=== PATIENT | female | born 1980 | race Caucasian/White ===

== ENCOUNTER 2017-03-01 12:02 | Emergency (ER) | payer OTHER ==
[2017-03-01 12:17] VITALS: BP 104/57
[2017-03-01] MEDS ORDERED: Ketorolac 60 MG/2 ML SDV IM ONE (12:28)
--- NOTE | 2017-03-01 12:53 | EDM.PDOC ---
ED HPI Trauma - General Chief Complaint: Lower Extremity Injury/Pain Stated Complaint: LT KNEE INJURY Time Seen by Provider: 03/01/17 12:08 Source: Reports: Patient History Limitations: Reports: No limitations - History of Present Illness INITIAL COMMENTS - FREE TEXT/NARRATIVE: 36 year old female presents for evaluation and treatment of injury to the left knee. Patient reports injury occurred about one hour prior to arrival in the ER. 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 She was at work. She was walking on a wet bathroom floor. She states that she slipped and fell and landed directly on her knee. She is complaining of burning sensation to the anterior knee and along the medial left knee. She has not been able to bear weight on the knee since the fall. She did not hear any popping, cracking or snapping sounds. She denies any numbness or tingling into the leg distally. No bruising or swelling as of yet. No treatments prior to arrival in the ER. patient recently relocated to [place] from [place]. She does not have a primary care provider. Patient also reports left ankle pain and swelling. She states that she broke the left foot twice. She's been utilizing a walking boot when the foot is causing her discomfort. Occurred When: just prior to arrival Occurred Where: work Method of Injury: fall Pain/Injury Location: Reports: lower extremity, left Consciousness: Reports: no loss of consciousness, remembers incident Allergies/ADRs: Allergies No Known Allergies Allergy (Verified 03/01/17 12:11) Home Medications: Ambulatory Orders . [No Known Home Meds] 03/01/17 [Confirmed 03/01/17] Past Medical History Respiratory History: Reports: Asthma Neurological History: Reports: Other (see below) Other Neuro History: brain surgery - Past Surgical History GI Surgical History: Reports: Cholecystectomy Female Surgical History: Reports: section Musculoskeletal Surgical History: Reports: Carpal tunnel Social & Family History - Tobacco Use Smoking Status *Q: Current Every Day Smoker Years of Tobacco use: 22 Packs/Tins Daily: 1 - Caffeine Use Caffeine Use: Reports: Coffee, Soda, Tea - Recreational Drug Use Recreational Drug Use: No Review of Systems - Review of Systems Review Of Systems: See Below Musculoskeletal: Reports: foot pain (left, chronic), joint pain (left knee). Denies: joint swelling Skin: Denies: bruising, erythema, wound Neurological: Reports: Difficulty Walking (due to left knee pain). Denies: Numbness, Syncope, Tingling Trauma Exam - Physical Exam Exam: See Below Exam Limited By: No limitations General Appearance: Reports: alert, WD/WN, no apparent distress Head: Reports: atraumatic, normocephalic Respiratory Exam: Reports: no respiratory distress Cardiovascular: Reports: normal peripheral pulses (2+ dorsalis pedis and posterior tibialis pulses bilaterally) Extremities: Reports: no evidence of injury, bony-point tenderness (left patella ), pain with movement (able to flex the knee to 90 degrees), tenderness ( superior and lateral to the left knee), unable to bear weight, other (mild pain with anterior drawer, posterior drawer, valgua and varus stress testing; no laxity appreciated.) Neurologic: Reports: alert, normal mood/affect Skin: Reports: Normal color, Warm/dry. Denies: Ecchymosis Course - Vital Signs Last Recorded V/S: Last Vital Signs Temp 36.7 C 03/01/17 12:15 Pulse 85 03/01/17 12:15 Resp 20 03/01/17 12:15 BP 104/57 L 03/01/17 12:15 Pulse Ox 98 03/01/17 12:15 - Orders/Labs/Meds Orders: Active Orders 24 hr Category Date Time Status Knee Min 4V Lt [CR] Stat Exams 03/01/17 12:28 Ordered Meds: Medications Discontinued Medications Generic Name Dose Route Start Last Admin Trade Name Freq PRN Reason Stop Dose Admin Ketorolac Tromethamine 60 mg 03/01/17 12:28 03/01/17 12:44 Toradol IM 03/01/17 12:29 60 mg ONETIME ONE Administration - Re-Assessments/Exams Free Text/Narrative Re-Assessment/Exam: 03/01/17 13:07 I reviewed the xray results with the patient. No fractures. Will provide crutches and an HI bandage. Note written for work. Discharge instructions as documented. Departure - Departure Time of Disposition: 13:08 Disposition: Home, Self-Care 01 Condition: fair Clinical Impression: Contusion of knee Instructions: Muscle Strain, [id number] Referrals: PCP,None [Primary Care Provider] - Forms: ED Department Discharge, Return to Work/School Form Additional Instructions: [id number] Tylenol or Motrin as needed for pain relief. Use the crutches and the Hi bandage as needed for swelling and pain relief. Ice the knee 3-4 times a day for 10-15 minutes. Expect the knee to be sore the next week. The first 3 days will be the worst. I have written you a note for work. If you continue to have soreness of the knee towards the end of this week I recommend he see family practice. Call [phone] to schedule the provider at [facility]. Recommend Dr. Moralez or Ryan Vargas. Please return to the ER should your symptoms change or worsen. - My Orders Last 24 Hours: My Active Orders 03/01/17 12:28 Knee Min 4V Lt [CR] Stat - Assessment/Plan Last 24 Hours: My Active Orders 03/01/17 12:28 Knee Min 4V Lt [CR] Stat
--- NOTE | 2017-03-03 10:34 | CR ---
Left knee: Four views of the left knee were obtained. Comparison: No previous study. Medial and lateral joint spaces are maintained in height. No joint effusion is seen. No fracture or other bony abnormality is seen. Impression: 1. No abnormality is identified on the left knee exam. Diagnostic code #1
== END 2017-03-01 13:40 | disposition home or self-care (01) ==
LOC: JD.ED 12:02
DX: S80.02XA Contusion of left knee, initial encounter (principal); J45.909 Unspecified asthma, uncomplicated; F17.210 Nicotine dependence, cigarettes, uncomplicated; Z90.49 Acquired absence of other specified parts of digestive tract; Z98.890 Other specified postprocedural states; W01.0XXA Fall on same level from slipping, tripping and stumbling without subsequent striking against object, initial encounter; Y92.002 Bathroom of unspecified non-institutional (private) residence as the place of occurrence of the external cause; Y99.0 Civilian activity done for income or pay
CPT/HCPCS: 73564; 96372; 99284; J1885; 99283

== ENCOUNTER 2017-04-27 15:12 | Emergency (ER) | payer SELFPAY ==
--- NOTE | 2017-04-27 15:29 | EDM.PDOC ---
ED HPI GENERAL MEDICAL PROBLEM - General Chief Complaint: Skin Complaint Stated Complaint: 3 DAYS PAINFULL RASH MID SECTION Time Seen by Provider: 04/27/17 15:18 - History of Present Illness INITIAL COMMENTS - FREE TEXT/NARRATIVE: 36-year-old female presents emergency room with an itchy rash. This started 3 or 4 days ago it has been somewhat variable initially she had some on her back but now it is almost entirely on her abdomen. This is bothersome for her as she has significant itching with this. She denies any other symptoms no fevers or chills no abdominal pain no breathing difficulties no shortness of breath. She has not had any burning or frequency with urination and denies as she had a tubal many years ago. The patient comes started the day after she returned from a trip to [place]. Past medical history is otherwise unremarkable. She has asthma uses albuterol as needed has not needed to use this for quite a long time. She has no breathing difficulties with this rash - Related Data Allergies Allergy/AdvReac Type Severity Reaction Status Date / Time No Known Allergies Allergy Verified 03/01/17 12:11 Home Meds: Home Meds Albuterol Sulfate [Proventil Hfa] 1 - 2 puff INH ASDIRECTED 04/27/17 [History] Prednisone [IJD: predniSONE] 60 mg PO WITHBREAKFAST #12 tab 04/27/17 [Rx] Past Medical History Respiratory History: Reports: Asthma Neurological History: Reports: Other (See Below) Other Neuro History: brain surgery - Past Surgical History Female Surgical History: Reports: Section Musculoskeletal Surgical History: Reports: Carpal Tunnel Social & Family History - Tobacco Use Smoking Status *Q: Current Every Day Smoker Years of Tobacco use: 22 Packs/Tins Daily: 1 - Caffeine Use Caffeine Use: Reports: Coffee, Soda, Tea - Recreational Drug Use Recreational Drug Use: No ED ROS GENERAL - Review of Systems Review Of Systems: See Below Constitutional: Reports: No Symptoms HEENT: Reports: No Symptoms Respiratory: Reports: No Symptoms Cardiovascular: Reports: No Symptoms Endocrine: Reports: No Symptoms GI/Abdominal: Reports: No Symptoms : Reports: No Symptoms Musculoskeletal: Reports: No Symptoms Skin: Reports: Urticaria Neurological: Reports: No Symptoms Psychiatric: Reports: No Symptoms ED EXAM, SKIN/RASH Exam: See Below Exam Limited By: No Limitations General Appearance: Alert, No Apparent Distress Eye Exam: Bilateral Eye: Normal Inspection Ears: Normal External Exam, Normal Canal, Hearing Grossly Normal, Normal TMs Nose: Normal Inspection, Normal Mucosa, No Blood Throat/Mouth: Normal Inspection, Normal Lips, Normal Teeth, Normal Gums, Normal Oropharynx, Normal Voice, No Airway Compromise Head: Atraumatic, Normocephalic Neck: Normal Inspection, Supple, Non-Tender, Full Range of Motion Respiratory/Chest: No Respiratory Distress, Lungs Clear, Normal Breath Sounds Cardiovascular: Regular Rate, Rhythm, No Edema, No Murmur Back Exam: Normal Inspection. No: CVA Tenderness (L), CVA Tenderness (R) Neurological: Alert, Oriented, Normal Cognition, No Motor/Sensory Deficits Skin: Other (She has polymorphic macular rash mostly over her abdomen to a much lesser degree she has a few areas on her low back. These areas change frequently the size of lesions is variable sometimes confluent sometimes individual but this does change. No burrows identified no involvement of the hands or feet.) Course - Vital Signs Last Recorded V/S: Last Vital Signs Temp 36.7 C 04/27/17 15:30 Pulse 81 04/27/17 15:30 Resp 20 04/27/17 15:30 BP 105/66 04/27/17 15:30 Pulse Ox 98 04/27/17 15:30 - Orders/Labs/Meds Meds: Medications Discontinued Medications Generic Name Dose Route Start Last Admin Trade Name Bertin PRN Reason Stop Dose Admin Diphenhydramine HCl 50 mg 04/27/17 15:48 04/27/17 15:58 Benadryl PO 04/27/17 15:49 50 mg ONETIME ONE Administration Famotidine 40 mg 04/27/17 15:48 04/27/17 15:57 Pepcid PO 04/27/17 15:49 40 mg ONETIME ONE Administration Prednisone 80 mg 04/27/17 15:48 04/27/17 15:58 Prednisone PO 04/27/17 15:49 80 mg ONETIME ONE Administration - Re-Assessments/Exams Free Text/Narrative Re-Assessment/Exam: 04/27/17 16:54 Albeit the patient just returned from a trip to [place] she denies any obvious exposures. Her significant other has not developed a rash or any other symptoms. This rash does have a lot of characteristics of hives and with that the variability this is probably what it is. Departure - Departure Time of Disposition: 16:44 Disposition: Home, Self-Care 01 Clinical Impression: Hives - Discharge Information Prescriptions: Prednisone [IJD: predniSONE] 60 mg PO WITHBREAKFAST #12 tab Referrals: PCP,None [Primary Care Provider] - Forms: ED Department Discharge Additional Instructions: Return to the emergency room with any questions or problems worsening symptoms. Follow-up in the Hospital clinic on Friday for recheck [phone] You have been started on prednisone your first one dose was given in the emergency room tonight. He need to take 60 mg first thing in the morning for the next 4 mornings. Start Pepcid 20 mg twice daily. Start tomorrow morning. Take this for 1 week. Start Benadryl 25 mg 4 times daily for the next 24 hours start this tonight with a dose around 10:00 PM. Take this approximately every 6 hours for the next 24 hours and then as needed.
[2017-04-27 15:33] VITALS: BP 105/66
[2017-04-27] MEDS ORDERED: Famotidine 20 MG Tab PO ONE (15:48)
[2017-04-27] MEDS ORDERED: diphenhydrAMINE 50 MG Cap PO ONE (15:48)
[2017-04-27] MEDS ORDERED: predniSONE 20 MG Tab PO ONE (15:48)
== END 2017-04-27 16:50 | disposition home or self-care (01) ==
LOC: JD.ED 15:12
DX: L50.9 Urticaria, unspecified (principal); J45.909 Unspecified asthma, uncomplicated; F17.210 Nicotine dependence, cigarettes, uncomplicated
CPT/HCPCS: 99283; A9270

== ENCOUNTER 2017-05-06 12:02 | Emergency (ER) | payer SELFPAY ==
[2017-05-06 12:34] VITALS: BP 109/49
--- NOTE | 2017-05-06 13:32 | EDM.PDOC ---
ED HPI GENERAL MEDICAL PROBLEM - General Chief Complaint: ENT Problem Stated Complaint: SORE THROAT Time Seen by Provider: 05/06/17 13:22 Source of Information: Reports: Patient History Limitations: Reports: No Limitations - History of Present Illness INITIAL COMMENTS - FREE TEXT/NARRATIVE: 36-year-old female presents for evaluation treatment of a sore throat and headache. Patient reports that she has been ill symptoms for the last week. She reports her symptoms are steadily worsening. She states that today was the first day of work. Her employer instructed her to come in to be seen. She denies any fevers, chills, ear pain, nausea, vomiting, abdominal pain or a cough. No recent travel. No ill contacts. 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: Neurological History: Reports: Other (See Below) Other Neuro History: brain surgery Endocrine/Metabolic History: Reports: Obesity/BMI 30+ Hematologic History: Reports: Blood Transfusion(s) - Past Surgical History GI Surgical History: Reports: Cholecystectomy Female Surgical History: Reports: Section Musculoskeletal Surgical History: Reports: Carpal Tunnel Social & Family History - Family History Family Medical History: Noncontributory - Tobacco Use Smoking Status *Q: Current Every Day Smoker Years of Tobacco use: 22 Packs/Tins Daily: 1 - Caffeine Use Caffeine Use: Reports: Coffee, Energy Drinks, Tea - Recreational Drug Use Recreational Drug Use: No ED ROS ENT - Review of Systems Review Of Systems: See Below Constitutional: Denies: Fever, Chills HEENT: Reports: Throat Pain. Denies: Ear Pain Respiratory: Denies: Cough GI/Abdominal: Denies: Abdominal Pain, Nausea, Vomiting Neurological: Reports: Headache ED EXAM, ENT - Physical Exam Exam: See Below Exam Limited By: No Limitations General Appearance: Alert, WD/WN, No Apparent Distress Ears: Normal External Exam, Normal Canal, Hearing Grossly Normal, Normal TMs Nose: Normal Inspection Mouth/Throat: Normal Inspection, Normal Gums, Normal Lips, Pharyngeal Erythema, Tonsillar Erythema. No: Tonsillar Exudates, Tonsillar Swelling Neck: Normal Inspection, Supple, Non-Tender, Full Range of Motion Respiratory/Chest: No Respiratory Distress, Lungs Clear, Normal Breath Sounds Cardiovascular: Normal Peripheral Pulses, Regular Rate, Rhythm, No Murmur GI/Abdominal: Soft, Non-Tender Neurological: Alert, Oriented, Normal Cognition Psychiatric: Normal Affect, Normal Mood Skin: Warm, Dry, Normal Color Course - Vital Signs Last Recorded V/S: Last Vital Signs Temp 36.5 C 05/06/17 12:31 Pulse 66 05/06/17 12:31 Resp 16 05/06/17 12:31 BP 109/49 L 05/06/17 12:31 Pulse Ox 99 05/06/17 12:31 - Re-Assessments/Exams Free Text/Narrative Re-Assessment/Exam: 05/06/17 15:26 Rapid strep is positive. Discussed the results with the patient. Offered a Bicillin shot versus amoxicillin. She would like to take the amoxicillin. Will discharge home at this time. Discharge instructions as documented. Departure - Departure Time of Disposition: 15:28 Disposition: Home, Self-Care 01 Condition: Fair Clinical Impression: Strep pharyngitis - Discharge Information Prescriptions: Amoxicillin 500 mg PO BID #20 tab Instructions: Pharyngitis Referrals: PCP,None [Primary Care Provider] - Forms: ED Department Discharge, Return to Work/School Form Additional Instructions: Take the amoxicillin twice a day for 10 days. take the full course of this antibiotic. [id number] Tylenol and Motrin as needed for pain relief. make sure your are drinking Plenty of fluids. note for work given strep is spread by saliva. wash any cups, boil toothbrush, etc. follow-up with your primary care provider as needed. return to the er if your symptoms change or worsen.
== END 2017-05-06 15:40 | disposition home or self-care (01) ==
LOC: JD.ED 12:02
DX: J02.0 Streptococcal pharyngitis (principal); I50.9 Heart failure, unspecified; J45.901 Unspecified asthma with (acute) exacerbation; E66.9 Obesity, unspecified; F17.210 Nicotine dependence, cigarettes, uncomplicated; Z90.49 Acquired absence of other specified parts of digestive tract; Z68.41 Body mass index [BMI] 40.0-44.9, adult
CPT/HCPCS: 87430; 99283

== ENCOUNTER 2018-04-11 14:52 | Emergency (ER) | payer MEDICAID ==
--- NOTE | 2018-04-11 15:45 | EDM.PDOC ---
ED HPI GENERAL MEDICAL PROBLEM - General Chief Complaint: Skin Complaint Stated Complaint: BREAST PAIN Time Seen by Provider: 04/11/18 15:17 Source of Information: Reports: Patient History Limitations: Reports: No Limitations - History of Present Illness INITIAL COMMENTS - FREE TEXT/NARRATIVE: The patient is a 37-year-old female with a chief complaint of left breast discharge. She states that she's had this problem on and off for about 6 months but has been unable to have it evaluated due to insurance reasons. She is occasionally able to express small amounts of purulent discharge from the left nipple. No significant pain at this time. She states that sometimes the breast feels itchy. No fever or any systemic symptoms. She had 2 children and did breast-feed one of them for a couple of days but that was about 10 years ago. No recent trauma. She hasn't been able to feel any sort of a mass. No additional complaint. Left Breast Pain Score (Numeric/FACES): 4 - Related Data Allergies Allergy/AdvReac Type Severity Reaction Status Date / Time No Known Allergies Allergy Verified 03/01/17 12:11 Home Meds: Home Meds Clindamycin HCl 300 mg PO QID #40 capsule 04/11/18 [Rx] Past Medical History Cardiovascular History: Reports: Other (See Below) Other Cardiovascular History: congestive heart failure Respiratory History: Reports: Asthma [employer] History: Reports: Neurological History: Reports: Other (See Below) Other Neuro History: brain surgery Psychiatric History: Reports: Anxiety, Bipolar, Depression Endocrine/Metabolic History: Reports: Obesity/BMI 30+ Hematologic History: Reports: Blood Transfusion(s) - Past Surgical History GI Surgical History: Reports: Cholecystectomy Female Surgical History: Reports: Section Musculoskeletal Surgical History: Reports: Carpal Tunnel Social & Family History - Family History Family Medical History: Noncontributory - Tobacco Use Smoking Status *Q: Current Every Day Smoker Years of Tobacco use: 10 Packs/Tins Daily: 1 - Caffeine Use Caffeine Use: Reports: None - Recreational Drug Use Recreational Drug Use: No ED ROS GENERAL - Review of Systems Review Of Systems: See Below Constitutional: Denies: Fever HEENT: Reports: No Symptoms Respiratory: Denies: Cough Cardiovascular: Denies: Chest Pain Endocrine: Reports: No Symptoms GI/Abdominal: Reports: No Symptoms Skin: Denies: Rash ED EXAM, SKIN/RASH Exam: See Below Exam Limited By: No Limitations General Appearance: Alert, WD/WN, No Apparent Distress Eye Exam: Bilateral Eye: EOMI, Normal Inspection Ears: Normal External Exam Nose: Normal Inspection Throat/Mouth: Normal Inspection Head: Atraumatic, Normocephalic Neck: Normal Inspection, Supple Respiratory/Chest: No Respiratory Distress, Lungs Clear, Normal Breath Sounds, Chest Non-Tender, Other (Left breast has normal appearance, no palpable mass, nipple is normal appearance, normal skin, unable to express any discharge from the nipple at this time.) Cardiovascular: Normal Peripheral Pulses, Regular Rate, Rhythm, No Murmur GI/Abdominal: Soft, Non-Tender, No Distention. No: Rebound Extremities: Normal Inspection Neurological: Alert, Oriented, Normal Cognition, No Motor/Sensory Deficits Psychiatric: Normal Affect, Normal Mood Skin: Warm, Dry, Intact, Normal Color, No Rash Course - Vital Signs Last Recorded V/S: Last Vital Signs Temp 36.6 C 04/11/18 19:03 Pulse 79 04/11/18 19:03 Resp 18 04/11/18 19:03 BP 105/61 04/11/18 19:03 Pulse Ox 97 04/11/18 19:03 - Re-Assessments/Exams Free Text/Narrative Re-Assessment/Exam: 04/12/18 21:07 The rapid report shows a small hypoechoic area that could be consistent with abscess versus other approximately 0.5 cm in radius. I do suspect that this represents a small chronic abscess. We'll treat with antibiotics and encouraged her to follow-up with a primary care physician for reevaluation to see if discharge continues and likely further breast imaging and possible referral to a breast surgeon. Patient understood. Discussed return precautions. Departure - Departure Time of Disposition: 18:34 Disposition: Home, Self-Care 01 Clinical Impression: Breast abscess - Discharge Information Prescriptions: Clindamycin HCl 300 mg PO QID #40 capsule Referrals: PCP,None [Primary Care Provider] - Forms: ED Department Discharge Additional Instructions: 1. Take antibiotic as prescribed 2. Follow up with a primary care provider as soon as possible. You may need further imaging and/or a referral to see a breast surgeon if this doesn't clear up. Call [phone] if you'd like to see a provider here.
[2018-04-11 19:03] VITALS: BP 105/61
--- NOTE | 2018-04-14 15:05 | US ---
Left breast ultrasound: Multiple real-time images were obtained of the left breast. Comparison: No prior breast imaging is available. Findings: Small 5.6 mm hypoechoic lesion is identified within the left breast within the subareolar region. This does not appear as a cystic structure and is otherwise nonspecific. No other cyst or solid abnormality is seen. Impression: 1. Subareolar abnormality measuring 5.6 mm. This is nonspecific but infection is possible. Recommend repeat study after patient's symptoms resolve to make sure current finding resolves. BI-RADS 3 - probable benign finding, initial short-term follow-up suggested I agree with preliminary report from [facility], finalized at 04/11/18, 7:30 PM Central Time
== END 2018-04-11 19:00 | disposition home or self-care (01) ==
LOC: JD.ED 14:52
DX: N61.1 Abscess of the breast and nipple (principal); F17.210 Nicotine dependence, cigarettes, uncomplicated
CPT/HCPCS: 76641-LT; 76641-LT-26; 99283; 99284-25

== ENCOUNTER 2018-06-09 20:28 | Emergency (ER) | payer MEDICAID, OTHER ==
[2018-06-09 20:48] VITALS: BP 112/70
[2018-06-09] MEDS ORDERED: Orphenadrine 100 MG Tab.ER PO STA (21:23)
[2018-06-09] MEDS ORDERED: HYDROmorphone 0.5 MG/0.5 ML Syringe IM ONE (21:23)
[2018-06-09] MEDS ORDERED: Ketorolac 60 MG/2 ML SDV IM ONE (21:23)
--- NOTE | 2018-06-09 21:33 | EDM.PDOC ---
ED HPI GENERAL MEDICAL PROBLEM - General Chief Complaint: Back Pain or Injury Stated Complaint: BACK PAIN Time Seen by Provider: 06/09/18 21:13 Source of Information: Reports: Patient, Old Records (recent MRI results) History Limitations: Reports: No Limitations - History of Present Illness INITIAL COMMENTS - FREE TEXT/NARRATIVE: 37-year-old female presents for evaluation and treatment of mid back pain. Patient reports she's had back pain since 2011. Sounds as if she recently relocated to [place] from [place]. She states she had an MRI done about one week ago was told she had a herniated disc at T7-T8. She is scheduled to see neurosurgery in one week. She reports today she has been taking Motrin and Aleve but continues to have worsening pain. States it is located in the mid back. Does not radiate anywhere. She denies any fevers, chills, nausea, vomiting , urinary incontinence or stool incontinence. She did appreciate yesterday that her toes are purple in certain spots and her feet seemed different. She questions if they were swollen. She has no pain into her legs or numbness or tingling in her legs. Primary care provider is Zandra Edmonds. Review the patient's records show that she had an MRI done on May 28. She does need have a herniated disc at T7-T8. Location: Reports: Back (mid back) Lower Back Pain Score (Numeric/FACES): 10 - Related Data Allergies Allergy/AdvReac Type Severity Reaction Status Date / Time No Known Allergies Allergy Verified 06/09/18 20:48 Home Meds: Home Meds Acetaminophen/oxyCODONE [Percocet 325-5 MG] 1 tab PO Q4HR PRN #15 tab 06/09/18 [ Rx] Sertraline HCl [Zoloft] 50 mg PO DAILY 06/09/18 [History] clonazePAM [Clonazepam] 06/09/18 [History] traZODone HCl [Trazodone HCl] 100 mg PO DAILY 06/09/18 [History] Past Medical History - Past Health History Medical/Surgical History: Denies Medical/Surgical History Cardiovascular History: Reports: Other (See Below) Other Cardiovascular History: congestive heart failure Respiratory History: Reports: Asthma GROUP TESTER History: Reports: Neurological History: Reports: Other (See Below) Other Neuro History: brain surgery Psychiatric History: Reports: Anxiety, Bipolar, Depression Endocrine/Metabolic History: Reports: Obesity/BMI 30+ Hematologic History: Reports: Blood Transfusion(s) - Past Surgical History GI Surgical History: Reports: Cholecystectomy Female Surgical History: Reports: Section Musculoskeletal Surgical History: Reports: Carpal Tunnel Social & Family History - Family History Family Medical History: Noncontributory - Tobacco Use Smoking Status *Q: Current Every Day Smoker Years of Tobacco use: 15 Packs/Tins Daily: 1 - Caffeine Use Caffeine Use: Reports: None ED ROS GENERAL - Review of Systems Review Of Systems: See Below Constitutional: Denies: Fever, Chills GI/Abdominal: Denies: Nausea, Stool Incontinence, Vomiting : Denies: Incontinence Musculoskeletal: Reports: Back Pain (mid back) Skin: Reports: Change in Color (reports feet were swollen and appeared purple yesterday, normal today) Neurological: Denies: Numbness, Tingling, Difficulty Walking ED EXAM, UPPER BACK/NECK PAIN - Physical Exam Exam: See Below Exam Limited By: No Limitations General Appearance: Alert, WD/WN, No Apparent Distress, Obese Throat/Mouth Exam: Normal Inspection, Normal Lips, Normal Voice, No Airway Compromise Head Exam: Atraumatic, Normocephalic Neck Exam: Non-Tender, Full Range of Motion, Normal Alignment, Normal Inspection Cardiovascular/Respiratory: Regular Rate, Rhythm, No M/R/G, Normal Peripheral Pulses (2+ dorsalis pedis and posterior tibialis pulses bilaterally) Back Exam: Normal Inspection, Decreased Range of Motion (reports pain with rotation to the left), Vertebral Tenderness (reports tenderness to the mid back around T6-T8) Extremities: Normal Inspection, Normal Range of Motion (normal dorsiflexion and plantarflexion), No Pedal Edema, Normal Capillary Refill Neurologic: Alert, Normal Mood/Affect Psychiatric: Normal Affect, Normal Mood Skin Exam: Normal Color, Warm/Dry. No: Ecchymosis Course - Vital Signs Last Recorded V/S: Last Vital Signs Temp 98.2 F 06/09/18 20:45 Pulse 70 06/09/18 20:45 Resp 18 06/09/18 20:45 BP 112/70 06/09/18 20:45 Pulse Ox 100 06/09/18 20:45 - Orders/Labs/Meds Meds: Medications Discontinued Medications Generic Name Dose Route Start Last Admin Trade Name Freq PRN Reason Stop Dose Admin Hydromorphone HCl 0.5 mg 06/09/18 21:23 06/09/18 21:41 Dilaudid IM 06/09/18 21:24 0.5 mg ONETIME ONE Administration Hydromorphone HCl Confirm 06/09/18 21:37 06/09/18 21:41 Dilaudid Administered 06/09/18 21:38 Not Given Dose 0.5 mg .ROUTE .STK-MED ONE Ketorolac Tromethamine 60 mg 06/09/18 21:23 06/09/18 21:40 Toradol IM 06/09/18 21:24 60 mg ONETIME ONE Administration Orphenadrine Citrate 100 mg 06/09/18 21:23 06/09/18 21:40 Norflex PO 06/09/18 21:24 100 mg NOW STA Administration - Re-Assessments/Exams Free Text/Narrative Re-Assessment/Exam: 06/09/18 22:22 Pain improved. Will send home with an Rx for pain medication only if needed. Has flexeril at home. Taking 5mg tid, may increase to 10mg tid. Advised to continue aleve bid. Recommend heat for additional relief. Follow-up with neurosurgery as planned. See PCP as needed for further pain management. Discharge instructions as documented. Departure - Departure Time of Disposition: 22:25 Disposition: Home, Self-Care 01 Condition: Fair Clinical Impression: Thoracic disc herniation - Discharge Information *PRESCRIPTION DRUG MONITORING PROGRAM REVIEWED*: Yes *COPY OF PRESCRIPTION DRUG MONITORING REPORT IN PATIENT [place]: No Prescriptions: Acetaminophen/oxyCODONE [Percocet 325-5 MG] 1 tab PO Q4HR PRN #15 tab PRN Reason: Pain Instructions: Herniated Disk, [id number] Referrals: Delmi Willis PA-C [Primary Care Provider] - Forms: ED Department Discharge Additional Instructions: you were given medication in the ER that can affect your ability to drive and operate machinery. Do not drive or operate machinery within 10 hours of taking narcotic pain medication. Continue taking the aleve as directed. Percocet 1tab PO every 4-6 hours prn pain. Percocet is habit forming, take as few of these as needed to control your pain. Do not drive or operate machinery within 10 hours of taking narcotic pain medication. May use ice or heat as needed for additional pain relief. May continue taking flexeril. May take 10mg tid prn muscle spasms. Follow-up with yours PCP for further pain management. Follow-up with neurosurgery as planned. Please return to the ER should your symptoms change or worsen.
[2018-06-09] MEDS ORDERED: HYDROmorphone 0.5 MG/0.5 ML SYRINGE ONE (21:37)
== END 2018-06-09 22:39 | disposition home or self-care (01) ==
LOC: JD.ED 20:28
DX: M51.24 Other intervertebral disc displacement, thoracic region (principal); F17.210 Nicotine dependence, cigarettes, uncomplicated; F31.9 Bipolar disorder, unspecified; F32.9 Major depressive disorder, single episode, unspecified; I50.9 Heart failure, unspecified; Z79.899 Other long term (current) drug therapy
CPT/HCPCS: 96372; 99283; A9270; J1170; J1885

== ENCOUNTER 2018-06-30 08:13 | Day surgery (SDC) | payer MEDICAID ==
[~2018-06-30 08:13] MED LIST: Albuterol 0.083% 2.5 MG/3 ML Neb Soln NEB ONE; Lactated Ringers 1,000 ML IV SCH; Lidocaine 1%/Sod Bicarbonate in NS 8.4% 1 ML Syringe IDERM PRN; Sodium Chloride 0.9% 10 ML Syringe FLUSH PRN
[2018-06-30] MEDS ORDERED: Lidocaine 1% 4 ML ONE (08:40)
[2018-06-30] MEDS ORDERED: fentaNYL 100 MCG/2 ML SDV ONE (08:40)
[2018-06-30] MEDS ORDERED: Propofol 200 MG/20 ML SDV ONE ×2 (08:40→10:58)
--- NOTE | 2018-06-30 09:28 | PCM.PREANE ---
<Roopa Thomas - Last Filed: 06/30/18 09:23> Preanesthetic Assessment - Review of Systems Pulmonary: No Symptoms (asthma) Gastrointestinal: No Symptoms (epigastric pain) Neurological: No Symptoms (January 2015, brain surgery malformation), Headache ( migraine headaches history of) Other: Reports: Thyroid Problems (hypothyroid), Depression (History of bipolar disorder), Anxiety - Physical Assessment NPO Status Date: 06/29/18 NPO Status Time: 22:00 Pulse: 72 O2 Sat by Pulse Oximetry: 94 Respiratory Rate: 16 Blood Pressure: 104/46 Temperature: 36.8 C Vital Signs: Last Vital Signs Temp 36.8 C 06/30/18 09:27 Pulse 72 06/30/18 09:27 Resp 16 06/30/18 09:27 BP 104/46 L 06/30/18 09:27 Pulse Ox 94 L 06/30/18 09:27 Height: 1.5 m Weight: 99.79 kg Mental Status: Alert & Oriented x3 - Lab Values: All labs reviewed and noted and within acceptable ranges to proceed with scheduled procedure. - Allergies Allergies/Adverse Reactions: Allergies Allergy/AdvReac Type Severity Reaction Status Date / Time No Known Allergies Allergy Verified 06/26/18 13:19 - Anesthesia Plan Pre-Op Medication Ordered: None - Acknowledgements Anesthesia Type Planned: MAC Pt an Appropriate Candidate for the Planned Anesthesia: Yes Alternatives and Risks of Anesthesia Discussed w Pt/Guardian: Yes Pt/Guardian Understands and Agrees with Anesthesia Plan: Yes PreAnesthesia Questionnaire - Past Health History Medical/Surgical History: Denies Medical/Surgical History HEENT History: Reports: None Cardiovascular History: Reports: Heart Failure, Hypertension, Other (See Below) Other Cardiovascular History: congestive heart failure Respiratory History: Reports: Asthma Gastrointestinal History: Reports: Other (See Below) Other Gastrointestinal History: blood in stool, epigastric pain Genitourinary History: Reports: Other (See Below) Other Genitourinary History: nipple discharge and soreness [employer] History: Reports: Musculoskeletal History: Reports: Back Pain, Chronic, Other (See Below) Other Musculoskeletal History: left knee pain Neurological History: Reports: Other (See Below) Other Neuro History: brain surgery, chiari malformation Psychiatric History: Reports: Anxiety, Bipolar, Depression Endocrine/Metabolic History: Reports: None, Obesity/BMI 30+ Hematologic History: Reports: Blood Transfusion(s) Immunologic History: Reports: None Oncologic (Cancer) History: Reports: None Dermatologic History: Reports: None - Past Surgical History Head Surgeries/Procedures: Reports: None HEENT Surgical History: Reports: None Cardiovascular Surgical History: Reports: None GI Surgical History: Reports: Cholecystectomy Female Surgical History: Reports: Section Male Surgical History: Reports: None Neurological Surgical History: Reports: None Musculoskeletal Surgical History: Reports: Carpal Tunnel Oncologic Surgical History: Reports: None Dermatological Surgical History: Reports: None - HOME MEDS Home Medications: Home Meds Sertraline HCl [Zoloft] 75 mg PO DAILY 06/09/18 [History] clonazePAM [Clonazepam] 1 mg PO Q6HR PRN 06/09/18 [History] Albuterol Sulfate [Proair Hfa] 1 - 2 puff INH Q4H PRN 06/26/18 [History] Carisoprodol 350 mg PO DAILY 06/26/18 [History] Cyclobenzaprine [Flexeril] 1 - 2 mg PO TID PRN 06/26/18 [History] oxyCODONE HCl/Acetaminophen [Oxycodone-Acetaminophen 5-325] 1 tab PO Q12HR PRN 06/26/18 [History] traZODone HCl [Trazodone HCl] 75 mg PO BEDTIME 06/26/18 [History] - CURRENT (IN HOUSE) MEDS Current Meds: Current Medications Lactated Ringer's (Ringers, Lactated) 1,000 mls @ 125 mls/hr IV ASDIRECTED ABDIAZIZ Stop: 06/30/18 23:00 Lidocaine/Sodium Bicarbonate (Buffered Lidocaine 1% In Ns 8.4%) 0.25 ml IDERM ONETIME PRN PRN Reason: Prior to IV Start Stop: 06/30/18 18:00 Sodium Chloride (Saline Flush) 10 ml FLUSH ASDIRECTED PRN PRN Reason: Keep Vein Open Stop: 06/30/18 18:00 Discontinued Medications Albuterol (Proventil Neb Soln) 2.5 mg NEB ONETIME ONE Stop: 06/30/18 08:01 Fentanyl (Sublimaze) Confirm Administered Dose 100 mcg .ROUTE .STK-MED ONE Stop: 06/30/18 08:41 Lidocaine HCl (Xylocaine-Mpf 1%) Confirm Administered Dose 4 mls @ as directed .ROUTE .STK-MED ONE Stop: 06/30/18 08:41 Propofol (Diprivan 20 Ml) Confirm Administered Dose 200 mg .ROUTE .STK-MED ONE Stop: 06/30/18 08:41 <Alexis Starr R - Last Filed: 06/30/18 09:48> Preanesthetic Assessment - Anesthesia/Transfusion/Family Hx Anesthesia History: Prior Anesthesia Without Reaction Family History of Anesthesia Reaction: No Transfusion History: Prior Transfusion Without Reaction - Review of Systems General: No Symptoms Pulmonary: Cough (smokers in am) Cardiovascular: Dyspnea on Exertion Gastrointestinal: Abdominal Pain Neurological: No Symptoms Other: Reports: Easy Bruising, Thyroid Problems, Depression, Anxiety - Physical Assessment ASA Class: 2 Mental Status: Alert & Oriented x3 Dentition: Reports: Normal Dentition, Missing Tooth/Teeth, Caries Thyro-Mental Finger Breadths: 3 Mouth Opening Finger Breadths: 3 ROM/Head Extension: Full Lungs: Clear to Auscultation, Normal Respiratory Effort Cardiovascular: Regular Rate, Regular Rhythm - Anesthesia Plan Pre-Op Medication Ordered: None - Acknowledgements Anesthesia Type Planned: MAC Pt an Appropriate Candidate for the Planned Anesthesia: Yes Alternatives and Risks of Anesthesia Discussed w Pt/Guardian: Yes Pt/Guardian Understands and Agrees with Anesthesia Plan: Yes PreAnesthesia Questionnaire Gastrointestinal History: Reports: GERD - SUBSTANCE USE Smoking Status *Q: Current Every Day Smoker Tobacco Use Within Last Twelve Months: Cigarettes Second Hand Smoke Exposure: No Days Per Week of Alcohol Use: 1 Number of Drinks Per Day: 2 Total Drinks Per Week: 2
[2018-06-30] MEDS ORDERED: Midazolam 1 MG/ML 2 ML SDV ONE (10:03)
[2018-06-30] MEDS ORDERED: Lidocaine 1%/Sod Bicarbonate in NS 8.4% 1 ML Syringe IDERM ONE (10:20)
[2018-06-30] MEDS ORDERED: Lactated Ringers 1,000 ML IV SCH (10:30)
--- NOTE | 2018-06-30 12:04 | PCM.OPNOTE ---
- General Post-Op/Procedure Note Date of Surgery/Procedure: 06/30/18 Operative Procedure(s): diagnostic colonoscopy Findings: Normal-appearing colonoscopy, with normal appearance to the terminal ileum Anesthesia Technique: MAC Primary Surgeon: Gerry Laura Anesthesia Provider: Alexis Starr Pathology: 1) terminal ileum 2) cecum 3) ascending colon 4) hepatic flexure 5) transverse colon 6) descending colon 7) sigmoid colon 8) rectum EBL in mLs: 1 Complications: None Condition: Good Free Text/Narrative:: Indications for surgery: The patient is 37 yo female, h/o severe obesity (BMI 44 ), with chronic diarrhea. The patient was consented for colonoscopy with possible biopsy. Indications, risks, and benefits were discussed with the patient in detail. Description of procedure: After surgical consent was verified, the patient was brought to the main OR. A surgical time-out was performed to verify proper patient and proper procedure. Anesthesia performed monitored anesthesia care. A digital rectal exam was performed, which was normal. The colonoscope was inserted into the anus and advanced through the colon to the cecum. Location of the cecum was confirmed by presence of the appendiceal orifice and ileocecal valve. The terminal ileum was intubated. The scope was then withdrawn, with inspection of the colonic mucosa. Retroflexion was performed in the rectum. The remainder of the colon and rectum was normal. Withdrawal time was 7 minutes, including time spent performing biopsy. There were no colonic or rectal abnormalities endoscopically. Random biopsies were obtained from the terminal ileum, different segments of the colon, and rectum. There was minimal blood loss. The patient tolerated the procedure well, was brought out of anesthesia, and transported to the PACU in stable condition. Gerry Laura M.D., F.A.C.S. General Surgery Pager: [phone]
[2018-06-30 12:49] VITALS: BP 102/36
== END 2018-06-30 13:00 | disposition home or self-care (01) ==
LOC: JD.SDS 08:13
PROVIDERS: ATTEND Student in an Organized Health Care Education/Training Program
DX: K52.9 Noninfective gastroenteritis and colitis, unspecified (principal); J45.909 Unspecified asthma, uncomplicated; M47.814 Spondylosis without myelopathy or radiculopathy, thoracic region; E03.9 Hypothyroidism, unspecified; E66.9 Obesity, unspecified; Z68.41 Body mass index [BMI] 40.0-44.9, adult; F41.9 Anxiety disorder, unspecified; F31.9 Bipolar disorder, unspecified; F17.210 Nicotine dependence, cigarettes, uncomplicated; Z79.899 Other long term (current) drug therapy
CPT/HCPCS: 45380; J2250; J2704; J3010; J7120; J2001

== ENCOUNTER 2018-07-09 20:45 | Emergency (ER) | payer MEDICAID ==
[2018-07-09] MEDS ORDERED: diphenhydrAMINE 50 MG/ML SDV IM ONE (21:17)
[2018-07-09] MEDS ORDERED: Haloperidol Lactate 5 MG/ML SDV IM ONE (21:17)
[2018-07-09] MEDS ORDERED: Ondansetron 4 MG Tab.DIS PO ONE (21:17)
[2018-07-09] MEDS ORDERED: Ketorolac 60 MG/2 ML SDV IM ONE (21:17)
--- NOTE | 2018-07-09 22:23 | EDM.PDOC ---
ED HPI GENERAL MEDICAL PROBLEM - General Chief Complaint: Headache Stated Complaint: MIGRAINE/NECK PAIN Time Seen by Provider: 07/09/18 21:07 Source of Information: Reports: Patient History Limitations: Reports: No Limitations - History of Present Illness INITIAL COMMENTS - FREE TEXT/NARRATIVE: Patient is a 37-year-old female with a history of Chiari malformation who presents to the ED complaining of a migraine headache that started this morning. States the headache is retro-orbital along her forehead and radiates to to the back of her head. She has some photophobia and very faint hyperacusis. No vision changes. No nausea vomiting. No fever. No recent trauma to her head that precipitated this. States she has chronic upper thoracic and neck discomfort. She has a herniated disc to the thoracic spine at T7. She is under pain therapy by PCP and scheduled to see a pain specialist in the next few months. States her neck does hurt on the right lateral side worse with palpation and also movement towards the right. She denies any change concerning for nuchal rigidity. She states last time she had a migraine was before surgery for Chiari malformation and 2014. The surgery was performed by a neurosurgeon in [place]. She has not followed up as instructed. She denies any upper respiratory symptoms, dental pain, vision changes, nausea vomiting, fever, trauma, increased stress, n/t to extremities, weakness to extremities, or any additional complaints. Headache was gradual onset and not described as the worse headache of her life. She denies being since she's had a tubal ligation. She has a history of asthma and takes albuterol as well. She smokes a half pack per day. Alcohol use occasionally. Denies recreational drug use. PCP is here locally at the [facility]. Headache Pain Score (Numeric/FACES): 9 - Related Data Allergies Allergy/AdvReac Type Severity Reaction Status Date / Time No Known Allergies Allergy Verified 07/09/18 20:53 Home Meds: Home Meds Sertraline HCl [Zoloft] 75 mg PO DAILY 06/09/18 [History] clonazePAM [Clonazepam] 1 mg PO Q6HR PRN 06/09/18 [History] Albuterol Sulfate [Proair Hfa] 1 - 2 puff INH Q4H PRN 06/26/18 [History] Carisoprodol 350 mg PO DAILY 06/26/18 [History] Cyclobenzaprine [Flexeril] 1 - 2 mg PO TID PRN 06/26/18 [History] oxyCODONE HCl/Acetaminophen [Oxycodone-Acetaminophen 5-325] 1 tab PO Q12HR PRN 06/26/18 [History] traZODone HCl [Trazodone HCl] 75 mg PO BEDTIME 06/26/18 [History] Past Medical History - Past Health History Medical/Surgical History: Denies Medical/Surgical History HEENT History: Reports: None Cardiovascular History: Reports: Heart Failure, Hypertension, Other (See Below) Other Cardiovascular History: congestive heart failure Respiratory History: Reports: Asthma Gastrointestinal History: Reports: GERD Other Gastrointestinal History: blood in stool, epigastric pain Genitourinary History: Reports: Other (See Below) Other Genitourinary History: nipple discharge and soreness [employer]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: Musculoskeletal History: Reports: Back Pain, Chronic, Other (See Below) Other Musculoskeletal History: left knee pain Neurological History: Reports: Other (See Below) Other Neuro History: brain surgery, chiari malformation Psychiatric History: Reports: Anxiety, Bipolar, Depression Endocrine/Metabolic History: Reports: None, Obesity/BMI 30+ Hematologic History: Reports: Blood Transfusion(s) Immunologic History: Reports: None Oncologic (Cancer) History: Reports: None Dermatologic History: Reports: None - Past Surgical History Head Surgeries/Procedures: Reports: None HEENT Surgical History: Reports: None Cardiovascular Surgical History: Reports: None GI Surgical History: Reports: Cholecystectomy Female Surgical History: Reports: Section, Tubal Ligation Neurological Surgical History: Reports: None Musculoskeletal Surgical History: Reports: Carpal Tunnel Oncologic Surgical History: Reports: None Dermatological Surgical History: Reports: None Social & Family History - Family History Family Medical History: Noncontributory - Tobacco Use Smoking Status *Q: Current Every Day Smoker Years of Tobacco use: 23 Packs/Tins Daily: 0.5 - Caffeine Use Caffeine Use: Reports: Coffee, Energy Drinks, Soda - Recreational Drug Use Recreational Drug Use: No ED ROS GENERAL - Review of Systems Review Of Systems: See Below Constitutional: Reports: Decreased Appetite. Denies: Fever, Chills HEENT: Reports: Vision Change (Photophobia). Denies: Dental Pain, Ear Pain, Sinus Problem, Throat Pain, Throat Swelling Respiratory: Reports: No Symptoms Cardiovascular: Reports: No Symptoms GI/Abdominal: Reports: No Symptoms Musculoskeletal: Reports: Neck Pain (Chronic unchanged. Pain is the right lateral neck along the trapezius. Otherwise unchanged.) Skin: Reports: No Symptoms Neurological: Reports: Headache (Generalized retro-orbital with photophobia). Denies: Confusion, Dizziness, Numbness, Paresthesia, Pre-Existing Deficit, Tingling, Trouble Speaking, Difficulty Walking, Weakness Psychiatric: Reports: No Symptoms - Physical Exam Exam: See Below Exam Limited By: No Limitations General Appearance: Alert, WD/WN, Mild Distress Eye Exam: Bilateral Eye: Normal Inspection Ears: Hearing Grossly Normal Nose: Normal Inspection Throat/Mouth: Normal Inspection, Normal Oropharynx, Normal Voice, No Airway Compromise Head Exam: Atraumatic, Normocephalic Neck: Normal Inspection, Supple, Full Range of Motion, Tender Lateral (right side, chronic). No: Tender Midline Respiratory/Chest: No Respiratory Distress, Lungs Clear, Normal Breath Sounds, No Accessory Muscle Use, Chest Non-Tender Cardiovascular: Normal Peripheral Pulses, Regular Rate, Rhythm, No Murmur Neuro Exam (Abbreviated): Alert, Oriented, CN II-XII Intact, Normal Cognition, Normal Gait, No Motor/Sensory Deficits, Other (No vision changes, facial droop, slurred speech, weakness discrepancy's to the upper and lower extremities. Finger-nose and rapid alternating movements are intact.) Back Exam: Normal Inspection Extremities: Normal Inspection, Normal Range of Motion, Non-Tender Psychiatric: Normal Affect, Normal Mood Skin Exam: Warm, Dry, Intact, Normal Color, No Rash Course - Vital Signs Last Recorded V/S: Last Vital Signs Temp 97.6 F 07/09/18 20:54 Pulse 78 07/09/18 20:54 Resp 18 07/09/18 20:54 BP 135/68 07/09/18 20:54 Pulse Ox 97 07/09/18 20:54 - Orders/Labs/Meds Orders: Active Orders 24 hr Category Date Time Status Head wo Cont [CT] Stat Exams 07/09/18 21:17 Taken Meds: Medications Discontinued Medications Generic Name Dose Route Start Last Admin Trade Name Freq PRN Reason Stop Dose Admin Diphenhydramine HCl 50 mg 07/09/18 21:17 07/09/18 21:27 Benadryl IM 07/09/18 21:18 50 mg ONETIME ONE Administration Haloperidol Lactate 7.5 mg 07/09/18 21:17 07/09/18 21:27 Haldol IM 07/09/18 21:18 7.5 mg ONETIME ONE Administration Ketorolac Tromethamine 60 mg 07/09/18 21:17 07/09/18 21:27 Toradol IM 07/09/18 21:18 60 mg ONETIME ONE Administration Ondansetron HCl 4 mg 07/09/18 21:17 07/09/18 21:27 Zofran Odt PO 07/09/18 21:18 4 mg ONETIME ONE Administration - Re-Assessments/Exams Free Text/Narrative Re-Assessment/Exam: Ordered CT of the head without contrast. In addition ordered although 7.5 mg IM , Benadryl 50 mg IM, Toradol 60 mg IM, and Zofran 4 mg by mouth. 07/09/18 22:15 Reassessment, patient is resting comfortably in bed. VSS. Upon awakening patient states headache is getting better. CT of the head results are pending. 2305 CT of the Head impression: No acute intracranial process. Discussed CT study with the patient. She will see her PCP on follow-up this coming Friday for reevaluation. In addition she will require being evaluated by a neurologist with her history of Chiari malformation. As patient stated it is unclear if the headache was created by her chronic thoracic and neck discomfort. With concern is the patient has not had a migraine since having surgery for the Chiari malformation. Patient is ready be discharged home. Discharge instructions as documented.The patient remained hemodynamically stable while under my care in the E.D. I discussed the concerning symptoms for which to returnto the E.D. with the patient/family. The patient/family verbalized understanding. All questions were answered. Departure - Departure Time of Disposition: 23:12 Disposition: Home, Self-Care 01 Condition: Good Clinical Impression: Tension-type headache - Discharge Information Instructions: Tension Headache, Adult Referrals: Delmi Willis PA-C [Primary Care Provider] - Forms: ED Department Discharge Additional Instructions: Unclear etiology of recent headache. Suspect this more likely tension type headache due to the description provided. YOu received Haldol, Toradol, Zofran , and Benadryl while in the ED to abort the headache. In addition CT of the head did not reveal any acute intracranial processes. Thus will have you follow- up with PCP this coming Friday for reevaluation. If headaches persist MRI of the brain would be appropriate and can be arranged by PCP. Neurology evaluation would be appropriate as well. This can be arranged by PCP. Please return back to the ED if you develop any new or worsening symptoms. No driving this evening since receiving a sedative medication. Continue taking all your home medications as prescribed. - My Orders Last 24 Hours: My Active Orders 07/09/18 21:17 Head wo Cont [CT] Stat - Assessment/Plan Last 24 Hours: My Active Orders 07/09/18 21:17 Head wo Cont [CT] Stat
[2018-07-09 23:25] VITALS: BP 109/57
--- NOTE | 2018-07-10 08:40 | CT ---
Head CT Technique: Multiple axial sections through the brain were obtained. Intravenous contrast was not utilized. Comparison: No prior intracranial imaging is available. Findings: Suboccipital craniotomy is noted. No acute calvarial abnormality is appreciated. Minimal mucosal thickening is seen within the left side of the sphenoid sinus. Ventricles along with basal cisterns and sulci over the convexities are within normal limits. No abnormal parenchymal densities are seen. No evidence of intracranial hemorrhage. No midline shift or mass effect is seen. Impression: 1. Previous suboccipital craniotomy. 2. Sinus findings as noted above which is felt to be incidental. 3. Nothing acute is seen on noncontrast head CT study. Diagnostic code #2 I agree with preliminary report issued by [facility] ([facility] preliminary report dictated on 07/10/18, 12:02 AM Central Time)
== END 2018-07-09 23:20 | disposition home or self-care (01) ==
LOC: JD.ED 20:45
DX: G44.209 Tension-type headache, unspecified, not intractable (principal); I11.0 Hypertensive heart disease with heart failure; I50.9 Heart failure, unspecified; J45.909 Unspecified asthma, uncomplicated; K21.9 Gastro-esophageal reflux disease without esophagitis; F31.9 Bipolar disorder, unspecified; F17.210 Nicotine dependence, cigarettes, uncomplicated; Z79.899 Other long term (current) drug therapy
CPT/HCPCS: 70450; 96372; 99284; A9270; J1200; J1630; J1885

== ENCOUNTER 2018-12-22 16:27 | Emergency (ER) | payer MEDICAID ==
[2018-12-22 16:48] VITALS: BP 132/87
--- NOTE | 2018-12-22 19:20 | EDM.PDOC ---
ED HPI GENERAL MEDICAL PROBLEM - General Chief Complaint: Lower Extremity Injury/Pain Stated Complaint: PT FELL TWO DAYS AGO, LOWER BACK AND HIP PAIN. Time Seen by Provider: 12/22/18 18:54 Source of Information: Reports: Patient, RN Notes Reviewed - History of Present Illness INITIAL COMMENTS - FREE TEXT/NARRATIVE: patient slipped on ice a day or 2 ago, fell backwared and unto L side, having a lot of pain low back and L hip area, increased pain moving and walking, no head , neck, chest or abd pain. Left Posterior Hip Pain Score (Numeric/FACES): 7 - Related Data Allergies Allergy/AdvReac Type Severity Reaction Status Date / Time No Known Allergies Allergy Verified 09/17/18 10:36 Home Meds: Home Meds Sertraline HCl [Zoloft] 100 mg PO DAILY 06/09/18 [History] clonazePAM [Clonazepam] 1 mg PO Q6HR PRN 06/09/18 [History] traZODone HCl [Trazodone HCl] 75 mg PO BEDTIME 06/26/18 [History] Albuterol Sulfate [Proair Hfa] 1 puff INH ASDIRECTED PRN 09/17/18 [History] Albuterol/Ipratropium [DuoNeb 3.0-0.5 MG/3 ML] 3 ml INH Q6H PRN 09/17/18 [ History] Past Medical History - Past Health History Medical/Surgical History: Denies Medical/Surgical History HEENT History: Reports: Other (See Below) Other HEENT History: current abcess tooth to right side of mouth Cardiovascular History: Reports: Cardiomyopathy Other Cardiovascular History: CHF with Respiratory History: Reports: Asthma, Bronchitis, Recurrent Gastrointestinal History: Reports: Chronic Diarrhea, GERD, Hemorrhoids Other Gastrointestinal History: blood in stool, epigastric pain Genitourinary History: Reports: None Other Genitourinary History: nipple discharge and soreness 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: Musculoskeletal History: Reports: Back Pain, Chronic Other Musculoskeletal History: left knee pain Neurological History: Reports: Other (See Below) Other Neuro History: Chiari malformation Psychiatric History: Reports: Anxiety, Bipolar, Depression Endocrine/Metabolic History: Reports: Obesity/BMI 30+ Hematologic History: Reports: Blood Transfusion(s) Immunologic History: Reports: None Oncologic (Cancer) History: Reports: None Dermatologic History: Reports: None - Past Surgical History Head Surgeries/Procedures: Reports: Craniotomy GI Surgical History: Reports: Cholecystectomy Female Surgical History: Reports: Section, Tubal Ligation Neurological Surgical History: Reports: Other (See Below) Other Neurological Surgeries/Procedures: brain surgery for Chiari malformation in 2014 Musculoskeletal Surgical History: Reports: Carpal Tunnel Social & Family History - Family History Family Medical History: Noncontributory - Tobacco Use Smoking Status *Q: Current Every Day Smoker Years of Tobacco use: 25 Packs/Tins Daily: 25 - Caffeine Use Caffeine Use: Reports: Coffee - Recreational Drug Use Recreational Drug Use: No - Living Situation & Occupation Living situation: Reports: (), with Significant Other (Fiance , his mother and stepfather) Occupation: Unemployed Review of Systems - Review of Systems Review Of Systems: See Below Constitutional: Denies: Chills, Fever Mouth/Throat: Reports: No Symptoms Respiratory: Denies: Shortness of Breath, Pleuritic Chest Pain Cardiovascular: Denies: Chest Pain GI/Abdominal: Denies: Abdominal Pain, Nausea, Vomiting Musculoskeletal: Reports: Back Pain Skin: Reports: No Symptoms Neurological: Denies: Numbness, Tingling ED EXAM, GENERAL - Physical Exam Exam: See Below General Appearance: Alert, Moderate Distress Head: Atraumatic Neck: Supple Respiratory/Chest: No Respiratory Distress, Lungs Clear, Normal Breath Sounds Cardiovascular: Regular Rate, Rhythm GI/Abdominal: Soft, Non-Tender Back Exam: Paraspinal Tenderness (Mild low mid back mild low bed back), Vertebral Tenderness, Other (No visible swelling bruising) Extremities: Other (There is mild tenderness over the left hip and left pelvic rim, no bruising or swelling present or visible). No: Joint Swelling, Increased Warmth Neurological: Alert, Oriented, No Motor/Sensory Deficits Skin Exam: Warm, Dry, Normal Color Course - Vital Signs Last Recorded V/S: Last Vital Signs Temp 98.7 F 12/22/18 16:42 Pulse 74 12/22/18 16:42 Resp 18 12/22/18 16:42 BP 132/87 12/22/18 16:42 Pulse Ox 99 12/22/18 16:42 - Re-Assessments/Exams Free Text/Narrative Re-Assessment/Exam: 12/23/18 06:34 X-rays were done, no obvious fracture. Pelvis and left hip looks very good. Radiology report did come back later in the evening showing possible superior compression deformity T12. I have looked at the x-ray, it does not visualize well, this was a lumbar series ordered and taken with T12 barely visible at the top. There is a slight bulge of the superior anterior aspect of T12 but also some overlying shadows. There does not appear to be any loss of height of the anterior vertebral body of T12. I was not able to call of patient last evening when the report did come across and than it was getting too late. Will try reach her this morning. Radiologist does suggest consider coned-down views centered to the thoracic call lumbar junction or MRI. Departure - Departure Time of Disposition: 19:18 Disposition: Home, Self-Care 01 Condition: Fair Clinical Impression: Fall Qualifiers: Encounter type: initial encounter Qualified Code(s): W19.XXXA - Unspecified fall, initial encounter Contusion of lower back Qualifiers: Encounter type: initial encounter Qualified Code(s): S30.0XXA - Contusion of lower back and pelvis, initial encounter Contusion, hip Qualifiers: Encounter type: initial encounter Laterality: right Qualified Code(s): S70.01XA - Contusion of right hip, initial encounter - Discharge Information Instructions: Contusion, [id number] Referrals: Delmi Willis PA-C [Primary Care Provider] - Forms: ED Department Discharge Additional Instructions: ice pack alternating with heat as needed, continue ibuprofen or aleve as discussed, you may take tylenol in between doses for extra pain relief or hydrocodone if needed for severe pain, do not take tylenol and hydrocodone at the same time, do not drive when taking hydrocodone, follow up clinic if not much better within 3 to 5 days as expected.
--- NOTE | 2018-12-22 20:35 | CR ---
Lumbar spine: AP, lateral and coned down lateral view centered to the lumbosacral junction were obtained. Comparison: Previous MRI lumbar spine study of 10/21/18. Possible compression deformity within the superior endplate of T12 is noted. This is not seen on prior MRI and could be acute. Other vertebral body heights are maintained. Pedicles are intact. Transverse and spinous processes are intact. Sacroiliac joints are unremarkable. Impression: 1. Possible superior compression deformity within T12. This is not well seen due to positioning for lumbar spine exam. Coned-down views centered to the thoracolumbar junction could be obtained, alternatively MRI would be confirmatory for acute fracture. 2. No additional abnormality is seen. Diagnostic code #3
--- NOTE | 2018-12-23 07:15 | CR ---
Pelvis and left hip: AP view of the pelvis was obtained as well as frog leg lateral view of the left hip. Joint spaces within both hips are maintained. Sacroiliac joints appear unremarkable. No acute fracture or other abnormality is seen. Impression: 1. No abnormality is seen on AP pelvis and frog-leg lateral left hip exam. Diagnostic code #1
== END 2018-12-22 19:25 | disposition home or self-care (01) ==
LOC: JD.ED 16:27
DX: S30.0XXA Contusion of lower back and pelvis, initial encounter (principal); S70.02XA Contusion of left hip, initial encounter; F41.9 Anxiety disorder, unspecified; F32.9 Major depressive disorder, single episode, unspecified; J45.909 Unspecified asthma, uncomplicated; E66.9 Obesity, unspecified; F17.210 Nicotine dependence, cigarettes, uncomplicated; Z90.49 Acquired absence of other specified parts of digestive tract; Z98.51 Tubal ligation status; W00.0XXA Fall on same level due to ice and snow, initial encounter
CPT/HCPCS: 72100; 72100-26; 73501-26-LT; 73501-LT; 99283-25

== ENCOUNTER 2019-02-12 23:08 | Emergency (ER) | payer MEDICAID ==
[2019-02-12 23:17] VITALS: BP 143/84
[2019-02-12] MEDS ORDERED: Albuterol/Ipratropium 3.0-0.5 MG/3 ML Neb Soln NEB ONE (23:32)
[2019-02-12] MEDS ORDERED: methylPREDNISolone Sodium Succinate 125 MG/2 ML SDV IVPUSH ONE (23:33)
[2019-02-12] MEDS ORDERED: Sodium Chloride 0.9% 1,000 ML IV SCH (23:45)
[2019-02-13] MEDS ORDERED: methylPREDNISolone Sodium Succinate 125 MG/2 ML SDV IM ONE (00:05)
--- NOTE | 2019-02-13 00:17 | EDM.PDOC ---
ED HPI GENERAL MEDICAL PROBLEM - General Chief Complaint: Respiratory Problem Stated Complaint: COUGH SHORT OF BREATH Time Seen by Provider: 02/12/19 23:18 Source of Information: Reports: Patient History Limitations: Reports: No Limitations - History of Present Illness INITIAL COMMENTS - FREE TEXT/NARRATIVE: This is a 38-year-old female. She has a four-day history of increasing cough congestion and wheezing. She has a history of asthma. She tried to see her doctor today but they all left by noon because he was Good Friday. She is been trying breathing treatments at home and they're not really helping and she is having these paroxysms of coughing. She's not had any particular fever or chills. She's had no nausea and vomiting. She says that her asthma is flared up from her cold symptoms and she can't get it under control at home. So she comes to the ER for evaluation. - Related Data Allergies Allergy/AdvReac Type Severity Reaction Status Date / Time No Known Allergies Allergy Verified 02/12/19 23:17 Home Meds: Home Meds Sertraline HCl [Zoloft] 100 mg PO DAILY 06/09/18 [History] clonazePAM [Clonazepam] 1 mg PO Q6HR PRN 06/09/18 [History] traZODone HCl [Trazodone HCl] 75 mg PO BEDTIME 06/26/18 [History] Albuterol Sulfate [Proair Hfa] 1 puff INH ASDIRECTED PRN 09/17/18 [History] Albuterol/Ipratropium [DuoNeb 3.0-0.5 MG/3 ML] 3 ml INH Q6H PRN 09/17/18 [ History] Albuterol/Ipratropium [DuoNeb 3.0-0.5 MG/3 ML] 3 ml NEB Q6H PRN #30 neb [Rx] Amoxicillin/Potassium Clav [Augmentin 875-125 Tablet] 1 each PO BID #20 tablet 02/13/19 [Rx] Benzonatate [Tessalon Perle] 100 mg PO Q6H PRN #20 capsule 02/13/19 [Rx] predniSONE [Prednisone] 40 mg PO QAM #5 tablet 02/13/19 [Rx] Past Medical History - Past Health History Medical/Surgical History: Denies Medical/Surgical History HEENT History: Reports: Other (See Below) Other HEENT History: current abcess tooth to right side of mouth Cardiovascular History: Reports: Cardiomyopathy Other Cardiovascular History: CHF with Respiratory History: Reports: Asthma, Bronchitis, Recurrent Gastrointestinal History: Reports: Chronic Diarrhea, GERD, Hemorrhoids Other Gastrointestinal History: blood in stool, epigastric pain Genitourinary History: Reports: None Other Genitourinary History: nipple discharge and soreness 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: Musculoskeletal History: Reports: Back Pain, Chronic Other Musculoskeletal History: left knee pain Neurological History: Reports: Other (See Below) Other Neuro History: Chiari malformation Psychiatric History: Reports: Anxiety, Bipolar, Depression Endocrine/Metabolic History: Reports: Obesity/BMI 30+ Hematologic History: Reports: Blood Transfusion(s) Immunologic History: Reports: None Oncologic (Cancer) History: Reports: None Dermatologic History: Reports: None - Past Surgical History Head Surgeries/Procedures: Reports: Craniotomy GI Surgical History: Reports: Cholecystectomy Female Surgical History: Reports: Section, Tubal Ligation Neurological Surgical History: Reports: Other (See Below) Other Neurological Surgeries/Procedures: brain surgery for Chiari malformation in 2014 Musculoskeletal Surgical History: Reports: Carpal Tunnel Social & Family History - Family History Family Medical History: Noncontributory - Tobacco Use Smoking Status *Q: Current Every Day Smoker Years of Tobacco use: 20 Packs/Tins Daily: 0.5 - Caffeine Use Caffeine Use: Reports: Coffee - Recreational Drug Use Recreational Drug Use: No - Living Situation & Occupation Living situation: Reports: (), with Significant Other (Fiance , his mother and stepfather) Occupation: Unemployed ED ROS GENERAL - Review of Systems Review Of Systems: See Below Constitutional: Denies: Fever, Chills HEENT: Reports: Rhinitis. Denies: Ear Pain, Throat Pain, Throat Swelling Respiratory: Reports: Shortness of Breath, Wheezing, Cough Cardiovascular: Denies: Chest Pain Endocrine: Reports: No Symptoms GI/Abdominal: Denies: Abdominal Pain, Diarrhea, Nausea, Vomiting : Reports: No Symptoms Musculoskeletal: Reports: No Symptoms Skin: Reports: No Symptoms Neurological: Reports: No Symptoms Psychiatric: Reports: No Symptoms Hematologic/Lymphatic: Reports: No Symptoms ED EXAM, GENERAL - Physical Exam Exam: See Below Exam Limited By: No Limitations General Appearance: Alert, WD/WN, Mild Distress, Other (Persistent coughing and wheezing noted) Eye Exam: Bilateral Eye: Normal Inspection Ears: Normal External Exam, Normal Canal, Normal TMs Nose: Normal Inspection, Nasal Drainage, Clear Rhinorrhea Throat/Mouth: No Airway Compromise, Other (The patient appears to have laryngitis from all her coughing) Head: Normocephalic Neck: Supple Respiratory/Chest: Wheezing, Prolonged Expiration, Other (She has inspiratory and expiratory wheezing noted with some crackles in the bases, there is a prolonged expiratory phase noted, no intercostal retractions are noted) Cardiovascular: Regular Rate, Rhythm, No Murmur GI/Abdominal: Soft, Non-Tender Back Exam: Normal Inspection, Full Range of Motion Extremities: Normal Inspection, Normal Range of Motion Neurological: Alert, Oriented Psychiatric: Anxious Skin Exam: Warm, Dry Course - Vital Signs Last Recorded V/S: Last Vital Signs Temp 97.9 F 02/12/19 23:14 Pulse 85 02/12/19 23:14 Resp 20 02/12/19 23:14 BP 143/84 H 02/12/19 23:14 Pulse Ox 92 L 02/13/19 03:38 - Orders/Labs/Meds Orders: Active Orders 24 hr Category Date Time Status RT Aerosol Therapy [RC] ASDIRECTED Care 02/12/19 23:32 Active RT Aerosol Therapy [RC] ASDIRECTED Care 02/13/19 01:09 Active RT Aerosol Therapy [RC] ASDIRECTED Care 02/13/19 02:15 Active RT Aerosol Therapy [RC] ASDIRECTED Care 02/13/19 03:23 Active CXR [Chest 2V] [CR] Stat Exams 02/13/19 01:25 Taken cefTRIAXone [Rocephin] 1 gm Med 02/13/19 02:15 Active Lidocaine 1% [Xylocaine 1%] 2.1 ml IM Q24H Medication Orders Ceftriaxone Sodium 1 gm/ (Lidocaine HCl 2.1 ml) 0 gm IM Q24H ABDIAZIZ Last Admin: 02/13/19 02:23 Dose: 1 inj Labs: Laboratory Tests 02/13/19 02/13/19 Range/Units 00:13 00:13 WBC 4.70 (3.98-10.04) K/mm3 RBC 4.08 (3.98-5.22) M/mm3 Hgb 12.8 (11.2-15.7) gm/L Hct 38.9 (34.1-44.9) % MCV 95.3 H (79.4-94.8) fl MCH 31.4 (25.6-32.2) pg MCHC 32.9 (32.2-35.5) g/dl RDW Std Deviation 49.4 H (36.4-46.3) fL Plt Count 197 (182-369) K/mm3 MPV 9.7 (9.4-12.3) fl Neut % (Auto) 44.9 (34.0-71.1) % Lymph % (Auto) 35.7 (19.3-51.7) % Vermilion % (Auto) 14.3 H (4.7-12.5) % Eos % (Auto) 4.3 (0.7-5.8) Baso % (Auto) 0.6 (0.1-1.2) % Neut # (Auto) 2.11 (1.56-6.13) K/mm3 Lymph # (Auto) 1.68 (1.18-3.74) K/mm3 Vermilion # (Auto) 0.67 H (0.24-0.36) K/mm3 Eos # (Auto) 0.20 (0.04-0.36) K/mm3 Baso # (Auto) 0.03 (0.01-0.08) K/mm3 Sodium 140 (136-145) mEq/L Potassium 3.5 (3.5-5.1) mEq/L Chloride 104 (98-107) mEq/L Carbon Dioxide 24 (21-32) mEq/L Anion Gap 15.5 H (5-15) BUN 9 (7-18) mg/dL Creatinine 0.8 (0.55-1.02) mg/dL Est Cr Clr Drug Dosing 69.83 mL/min Estimated GFR (MDRD) > 60 (>60) mL/min BUN/Creatinine Ratio 11.3 L (14-18) Glucose 107 H (74-106) mg/dL Calcium 8.5 (8.5-10.1) mg/dL Total Bilirubin 0.1 L (0.2-1.0) mg/dL AST 17 (15-37) U/L ALT 23 (14-59) U/L Alkaline Phosphatase 66 (46-116) U/L Total Protein 6.7 (6.4-8.2) g/dl Albumin 3.5 (3.4-5.0) g/dl Globulin 3.2 gm/dL Albumin/Globulin Ratio 1.1 (1-2) Meds: Medications Generic Name Dose Route Start Last Admin Trade Name Freq PRN Reason Stop Dose Admin Ceftriaxone Sodium 1 gm/ 0 gm 02/13/19 02:15 02/13/19 02:23 Lidocaine HCl 2.1 ml IM 1 inj Q24H ABDIAZIZ Administration Discontinued Medications Generic Name Dose Route Start Last Admin Trade Name Freq PRN Reason Stop Dose Admin Albuterol/Ipratropium 3 ml 02/12/19 23:32 02/12/19 23:39 Duoneb 3.0-0.5 Mg/3 Ml NEB 02/12/19 23:33 3 ml ONETIME ONE Administration Albuterol/Ipratropium 3 ml 02/13/19 02:15 02/13/19 02:35 Duoneb 3.0-0.5 Mg/3 Ml NEB 02/13/19 02:16 3 ml ONETIME ONE Administration Budesonide 0.5 mg 02/13/19 01:08 02/13/19 01:15 Pulmicort NEB 02/13/19 01:09 0.5 mg ONETIME ONE Administration Budesonide 0.5 mg 02/13/19 03:23 02/13/19 03:38 Pulmicort NEB 02/13/19 03:24 0.5 mg ONETIME ONE Administration Methylprednisolone Sodium Succinate 125 mg 02/13/19 00:05 02/13/19 00:16 Solu-Medrol IM 02/13/19 00:06 125 mg ONETIME ONE Administration - Radiology Interpretation Free Text/Narrative:: Chest x-ray shows hyper. Lung hernandez but no acute infiltrates are suspected. In the right hilum it looks kind of ratty but I don't think there is an infiltrate there. - Re-Assessments/Exams Free Text/Narrative Re-Assessment/Exam: 02/13/19 02:06 I spoke to the patient regarding the x-ray results and the blood work being normal white count. I believe she has an exacerbation of her asthma with an acute bronchitis. I gave her a shot of Rocephin in the ER placed her on some antibiotics for some steroids and continued nebulizer treatments. 02/13/19 02:15 The patient is breathing much better now. She has minimal inspiratory wheeze but still has expiratory wheeze with a mild prolonged expiratory phase. She states she is feeling much better and she is coughing much less. I indicated to her that the x-ray did not show any acute infiltrates slight believe she has an upper respiratory infection this turn into an acute bronchitis this exacerbated her asthma. 02/13/19 03:48 Patient continues to improve and now she has minimal wheezing both inspiratory and expiratory and the face is almost equal with inspiratory and expiratory. She is feeling much better. 02/13/19 03:57 She is breathing freely now. Her inspiratory and expiratory phase are equal. I do not hear any obvious wheezing in her lung hernandez presently. She wants to go home. Departure - Departure Time of Disposition: 03:49 Disposition: Home, Self-Care 01 Condition: Fair Clinical Impression: Upper respiratory infection Qualifiers: URI type: unspecified viral URI Qualified Code(s): J06.9 - Acute upper respiratory infection, unspecified Acute bronchitis Qualifiers: Bronchitis organism: unspecified organism Qualified Code(s): J20.9 - Acute bronchitis, unspecified Exacerbation of asthma Qualifiers: Asthma severity: moderate Asthma persistence: persistent Qualified Code(s): J45.41 - Moderate persistent asthma with (acute) exacerbation - Discharge Information *PRESCRIPTION DRUG MONITORING PROGRAM REVIEWED*: Not Applicable *COPY OF PRESCRIPTION DRUG MONITORING REPORT IN PATIENT KIRILL: Not Applicable Prescriptions: Albuterol/Ipratropium [DuoNeb 3.0-0.5 MG/3 ML] 3 ml NEB Q6H PRN #30 neb PRN Reason: Wheezing Amoxicillin/Potassium Clav [Augmentin 875-125 Tablet] 1 each PO BID #20 tablet Benzonatate [Tessalon Perle] 100 mg PO Q6H PRN #20 capsule PRN Reason: Cough predniSONE [Prednisone] 40 mg PO QAM #5 tablet Instructions: Asthma, Adult, Acute Bronchitis, Adult, [id number] Referrals: Delmi Willis PA-C [Primary Care Provider] - Forms: ED Department Discharge Additional Instructions: Start taking the antibiotics tomorrow evening, continue with the breathing treatments every 6-8 hours for the wheezing, take the Tessalon Perles for the cough, and take the prednisone to help with the inflammation in your lungs, at home do nothing but drink lots of fluids, no strenuous activity and no jennifer environments, rest and sleep as much as possible, follow up with your family doctor this week for recheck and return to the ER if needed - My Orders Last 24 Hours: My Active Orders 02/12/19 23:32 RT Aerosol Therapy [RC] ASDIRECTED 02/13/19 01:09 RT Aerosol Therapy [RC] ASDIRECTED 02/13/19 01:25 CXR [Chest 2V] [CR] Stat 02/13/19 02:15 RT Aerosol Therapy [RC] ASDIRECTED cefTRIAXone [Rocephin] 1 gm Lidocaine 1% [Xylocaine 1%] 2.1 ml IM Q24H 02/13/19 03:23 RT Aerosol Therapy [RC] ASDIRECTED - Assessment/Plan Last 24 Hours: My Active Orders 02/12/19 23:32 RT Aerosol Therapy [RC] ASDIRECTED 02/13/19 01:09 RT Aerosol Therapy [RC] ASDIRECTED 02/13/19 01:25 CXR [Chest 2V] [CR] Stat 02/13/19 02:15 RT Aerosol Therapy [RC] ASDIRECTED cefTRIAXone [Rocephin] 1 gm Lidocaine 1% [Xylocaine 1%] 2.1 ml IM Q24H 02/13/19 03:23 RT Aerosol Therapy [RC] ASDIRECTED
[2019-02-13] MEDS ORDERED: Budesonide 0.5 MG/2 ML Neb Susp NEB ONE ×2 (01:08→03:23)
[2019-02-13] MEDS ORDERED: Albuterol/Ipratropium 3.0-0.5 MG/3 ML Neb Soln NEB ONE (02:15)
[2019-02-13] MEDS ORDERED: cefTRIAXone 1 GM, Lidocaine 1% 2.1 ML IM SCH ×2 (02:15)
--- NOTE | 2019-02-13 20:17 | CR ---
Chest: Two views of the chest were obtained. Comparison: Prior chest x-ray of 09/24/[address] of 10/06/18. Heart size and mediastinum are normal. Lungs are clear. Bony structures appear within normal limits for the patient's age. Surgical clips are seen from prior cholecystectomy. Impression: 1. Nothing acute is seen on two-view chest x-ray. Diagnostic code #2
== END 2019-02-13 04:12 | disposition home or self-care (01) ==
LOC: JD.ED 23:08
DX: J45.41 Moderate persistent asthma with (acute) exacerbation (principal); F17.210 Nicotine dependence, cigarettes, uncomplicated; J06.9 Acute upper respiratory infection, unspecified; J20.9 Acute bronchitis, unspecified; Z79.899 Other long term (current) drug therapy
CPT/HCPCS: 36415; 71046; 80053; 85025; 94640; 96372; 99285; J0696; J2001; J2930; 99283; J7620-GY

== ENCOUNTER 2021-03-11 15:25 | Emergency (ER) | payer MEDICAID ==
[2021-03-11 15:50] VITALS: BP 117/85; PULSE 92
[2021-03-11] MEDS ORDERED: Ketorolac 60 MG/2 ML SDV IM ONE (16:04)
--- NOTE | 2021-03-11 16:27 | EDM.PDOC ---
ED HPI GENERAL MEDICAL PROBLEM - General Chief Complaint: Back Pain or Injury Stated Complaint: SWELLING IN LT LEGS AND BACK PAIN Time Seen by Provider: 03/11/21 15:34 Source of Information: Reports: Patient, RN Notes Reviewed History Limitations: Reports: No Limitations - History of Present Illness INITIAL COMMENTS - FREE TEXT/NARRATIVE: Patient is a 40-year-old female presenting to the emergency department with complaints of worsening of her chronic back pain as well as bilateral lower extremity edema and shortness of breath with exertion. She reports that she has had problems with her back for many years. She has been scheduled for MRIs on a couple occasions, however she was unable to finish them as she could not lay flat for long enough to complete the imaging. She has seen a neurosurgeon and is supposed to have surgery on her back, but they won't do the surgery until she stops smoking. She also reports that she has been having problems with lower extremity swelling for quite some time and has been feeling SOB with exertion. She was on Lasix as needed at one point, however she is no longer taking this. Her primary care provider is AMARILIS Obrien; however, she has not seen her since October. She reports that she has been supposed to be getting blood work completed, however she has been avoiding it because she is a difficult lab draw. She reports that her provider wanted to check an A1c, her thyroid function, and standard labs. She denies any recent injuries or bowel or bladder dysfunction. She has been using ibuprofen for pain with her last dose being about 4 hours ago. She reports that she has seen a pain specialist in the past and she was receiving percocet; however, they would no longer see her because one of her urine drug screens came up negative. Left Hip Pain Score (Numeric/FACES): 7 - Related Data Allergies Allergy/AdvReac Type Severity Reaction Status Date / Time No Known Allergies Allergy Verified 02/12/19 23:17 Home Meds: Home Meds Sertraline HCl [Zoloft] 100 mg PO DAILY 06/09/18 [History] clonazePAM [Clonazepam] 1 mg PO Q6HR PRN 06/09/18 [History] traZODone HCl [Trazodone HCl] 75 mg PO BEDTIME 06/26/18 [History] Albuterol Sulfate [Proair Hfa] 1 puff INH ASDIRECTED PRN 09/17/18 [History] Albuterol/Ipratropium [DuoNeb 3.0-0.5 MG/3 ML] 3 ml INH Q6H PRN 09/17/18 [History] Past Medical History - Past Health History Medical/Surgical History: Denies Medical/Surgical History HEENT History: Reports: Other (See Below) Other HEENT History: current abcess tooth to right side of mouth Cardiovascular History: Reports: Cardiomyopathy Other Cardiovascular History: CHF Respiratory History: Reports: Asthma, Bronchitis, Recurrent Gastrointestinal History: Reports: GERD, Hemorrhoids Other Gastrointestinal History: blood in stool, epigastric pain Genitourinary History: Reports: None Other Genitourinary History: nipple discharge and soreness 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 COOK 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: Reports: Musculoskeletal History: Reports: Back Pain, Chronic Other Musculoskeletal History: left knee pain and leg pain Neurological History: Reports: Other (See Below) Other Neuro History: Chiari malformation Psychiatric History: Reports: Anxiety, Bipolar, Depression Endocrine/Metabolic History: Reports: Obesity/BMI 30+ Hematologic History: Reports: Blood Transfusion(s) Immunologic History: Reports: None Oncologic (Cancer) History: Reports: None Dermatologic History: Reports: None - Past Surgical History Head Surgeries/Procedures: Reports: Craniotomy HEENT Surgical History: Reports: None Cardiovascular Surgical History: Reports: None Respiratory Surgical History: Reports: None GI Surgical History: Reports: Cholecystectomy Female Surgical History: Reports: Section, Tubal Ligation Neurological Surgical History: Reports: Other (See Below) Other Neurological Surgeries/Procedures: brain surgery for Chiari malformation in 2014 Musculoskeletal Surgical History: Reports: Carpal Tunnel Oncologic Surgical History: Reports: None Dermatological Surgical History: Reports: None Social & Family History - Family History Family Medical History: No Pertinent Family History - Tobacco Use Tobacco Use Status *Q: Current Every Day Tobacco User Years of Tobacco use: 28 Packs/Tins Daily: 0.5 - Caffeine Use Caffeine Use: Reports: Coffee, Soda, Tea - Recreational Drug Use Recreational Drug Use: No - Living Situation & Occupation Living situation: Reports: (), with Significant Other (Fiance, his mother and stepfather) Occupation: Unemployed ED ROS GENERAL - Review of Systems Review Of Systems: Comprehensive ROS is negative, except as noted in HPI. ED EXAM,LOWER BACK PAIN/INJURY - Physical Exam Exam: See Below Exam Limited By: No Limitations General Appearance: Alert, WD/WN, No Apparent Distress, Obese Respiratory/Chest: No Respiratory Distress, Lungs Clear, Normal Breath Sounds, No Accessory Muscle Use, Chest Non-Tender Cardiovascular: Normal Peripheral Pulses, Regular Rate, Rhythm, No Gallop, No JVD, No Murmur, No Rub, Other (2+ nonpitting bilateral lower extremity edema) Back Exam: Normal Inspection, Full Range of Motion, Paraspinal Tenderness (bilateral low back) Neurological: Alert, Normal Mood/Affect, Normal Dorsiflexion, CN II-XII Intact, Normal Plantar Flexion, Normal Gait, Normal Reflexes, No Motor/Sensory Deficits, Oriented x 3 Psychiatric: Normal Affect, Normal Mood Skin Exam: Warm, Dry, Intact, Normal Color, No Rash Course - Vital Signs Last Recorded V/S: Last Vital Signs Temp 98.1 F 03/11/21 15:48 Pulse 92 03/11/21 15:48 Resp BP 117/85 03/11/21 15:48 Pulse Ox 98 03/11/21 15:48 - Orders/Labs/Meds Labs: Laboratory Tests 03/11/21 03/11/21 03/11/21 Range/Units 16:18 16:18 16:18 WBC 11.15 H (3.98-10.04) K/mm3 RBC 4.54 (3.98-5.22) M/mm3 Hgb 13.2 D (11.2-15.7) gm/dl Hct 40.9 (34.1-44.9) % MCV 90.1 D (79.4-94.8) fl MCH 29.1 (25.6-32.2) pg MCHC 32.3 (32.2-35.5) g/dl RDW Std Deviation 44.5 (36.4-46.3) fL Plt Count 363 D (182-369) K/mm3 MPV 9.8 (9.4-12.3) fl Neut % (Auto) 57.8 (34.0-71.1) % Lymph % (Auto) 30.6 (19.3-51.7) % [place] % (Auto) 8.1 (4.7-12.5) % Eos % (Auto) 2.7 (0.7-5.8) Baso % (Auto) 0.6 (0.1-1.2) % Neut # (Auto) 6.45 H (1.56-6.13) K/mm3 Lymph # (Auto) 3.41 (1.18-3.74) K/mm3 [place] # (Auto) 0.90 H (0.24-0.36) K/mm3 Eos # (Auto) 0.30 (0.04-0.36) K/mm3 Baso # (Auto) 0.07 (0.01-0.08) K/mm3 Sodium 139 (136-145) mEq/L Potassium 5.0 (3.5-5.1) mEq/L Chloride 103 (98-107) mEq/L Carbon Dioxide 27 (21-32) mEq/L Anion Gap 14.0 (5-15) BUN 18 (7-18) mg/dL Creatinine 1.0 (0.55-1.02) mg/dL Est Cr Clr Drug Dosing TNP Estimated GFR (MDRD) > 60 (>60) mL/min BUN/Creatinine Ratio 18.0 (14-18) Glucose 94 (70-99) mg/dL Hemoglobin A1c 5.7 H ( - 5.6) % Calcium 8.7 (8.5-10.1) mg/dL Magnesium 3.1 H (1.8-2.4) mg/dL Total Bilirubin 0.3 (0.2-1.0) mg/dL AST 18 (15-37) U/L ALT 26 (14-59) U/L Alkaline Phosphatase 67 (46-116) U/L Total Protein 7.8 (6.4-8.2) g/dl Albumin 3.6 (3.4-5.0) g/dl Globulin 4.2 gm/dL Albumin/Globulin Ratio 0.9 L (1-2) Free T4 1.15 (0.76-1.46) ng/dL TSH 3rd Generation 2.077 (0.358-3.74) uIU/mL Meds: Medications Discontinued Medications Generic Name Dose Route Start Last Admin Trade Name Freq PRN Reason Stop Dose Admin Ketorolac Tromethamine 60 mg 03/11/21 16:04 03/11/21 16:52 Ketorolac 60 Mg/2 Ml Sdv IM 03/11/21 16:05 60 mg ONETIME ONE Administration - Re-Assessments/Exams Free Text/Narrative Re-Assessment/Exam: Patient is a 40-year-old female presenting to the emergency part with complaints of worsening of her chronic back pain, shortness of breath with exertion, and lower extremity swelling. She has had no recent injuries. Has no bowel or bladder dysfunction. She reports that her primary care provider has been wanting her to have blood drawn, however she has been avoiding it as she is a difficult stick. She has been on Lasix in the past but no longer is taking this. I have ordered the blood work that she states her provider was requesting which includes a CBC, CMP, A1c, TSH. I will do 2 view chest x-ray. Ordered Toradol 60 mg IM for pain. 03/11/21 17:50 Hematology was significant for WBC 11.15, hemoglobin A1c 5.7 and a magnesium elevated at 3.1. Patient does not take any magnesium containing supplements or medications. Recommend that she increase her fluid intake. Chest x-ray did not show any evidence of pulmonary vascular congestion was found to be normal. I will write prescription for Naprosyn as well as a short course of [place] for pain. She is to contact her primary care provider, Zandra Edmonds, tomorrow to set up a follow-up appointment for ongoing management of her chronic back pain and to have the MRIs completed. She is in agreement with this plan. Discharge instructions as documented. Departure - Departure Time of Disposition: 17:51 Disposition: Home, Self-Care 01 Condition: Good Clinical Impression: Shortness of breath, Peripheral edema Chronic back pain Qualifiers: Back pain location: low back pain Back pain laterality: bilateral Sciatica presence: unspecified whether sciatica present Qualified Code(s): M54.5 - Low back pain - Discharge Information *PRESCRIPTION DRUG MONITORING PROGRAM REVIEWED*: Yes *COPY OF PRESCRIPTION DRUG MONITORING REPORT IN PATIENT [place]IR[place]: No Instructions: Shortness of Breath, Adult, [id number], Chronic Back Pain, [id number] Referrals: Delmi Willis PA-C [Primary Care Provider] - Forms: ED Department Discharge Additional Instructions: You were seen in the emergency department today for evaluation with regards to chronic back pain, lower extremity edema, and shortness of breath with exertion. Work-up included blood work and a chest x-ray. Magnesium was found to be sl ightly elevated. Recommend that you increase your fluid intake. Your hemoglobin A1c was very minimally elevated. Thyroid was normal. Chest x-ray was normal. While in the ER, you received an injection of Toradol. You have been provided prescription for Naprosyn as well as [place]. Take the Naprosyn routinely for pain. For pain not relieved by this, you may use 1 tab of the [place]. Do not work or drive for 12 hours after taking this medication as it can be sedating. Call tomorrow morning to set up a follow-up appointment with your primary care provider for ongoing management of your chronic back pain and peripheral edema. Return to ER as needed. Sepsis Event Note (ED) - Evaluation Sepsis Screening Result: No Definite Risk
[2021-03-11 16:51] LABS: HEMOGLOBIN A1C 5.7 %
--- NOTE | 2021-03-12 07:42 | CR ---
Chest: 2 views of the chest were obtained. Comparison: Prior chest x-ray of 02/13/19. Heart size and mediastinum are normal. Lungs are clear with no acute parenchymal change. Bony structures appear within normal limits for the patient's age. Surgical clips are seen within the upper abdomen. Impression: 1. Nothing acute is appreciated on two-view chest x-ray. Diagnostic code #1
== END 2021-03-11 18:05 | disposition home or self-care (01) ==
LOC: JD.ED 15:25
DX: G89.29 Other chronic pain (principal); M54.5 Low back pain; R60.0 Localized edema; R06.02 Shortness of breath; J45.909 Unspecified asthma, uncomplicated; E66.9 Obesity, unspecified; Z72.0 Tobacco use; Z68.30 Body mass index [BMI] 30.0-30.9, adult
CPT/HCPCS: 36415; 71046; 80053; 83036; 83735; 84439; 84443; 85025; 96372; 99285; J1885; 99283

== ENCOUNTER 2021-06-20 13:28 | Emergency (ER) | payer MEDICAID ==
--- NOTE | 2021-06-20 14:06 | EDM.PDOC ---
ED HPI GENERAL MEDICAL PROBLEM - General Chief Complaint: Lower Extremity Injury/Pain Stated Complaint: LT FOOT PAIN AND BACK PAIN Time Seen by Provider: 06/20/21 13:59 Source of Information: Reports: Patient History Limitations: Reports: No Limitations - History of Present Illness INITIAL COMMENTS - FREE TEXT/NARRATIVE: 40-year-old female presents the emergency department with complaints of back pain and left foot pain. Patient has been seen in this emergency department in the past with complaints of chronic back pain. He has been in a walking boot for the past month and a half on her left foot. She states she has old fractures in there as well as new and is supposed to follow-up with her primary care provider regarding this. She states she is supposed to have an MRI due to the back pain however she has canceled twice. She was supposed to follow-up with her primary care provider regarding the back pain in the foot foot pain and she states she has not had time however she states that she went to the [facility] over the weekend of 11 July 2021. She states that when she was down there her foot pain became worse as well as her back pain. She brings her paperwork to the ER. She did have labs completed at that time and they showed a WBC of 10.3, hemoglobin 13.0, hematocrit 38.5, platelet count 325. Sodium 141, potassium 4.2, chloride 103, CO2 29, anion gap 9, BUN 10, creatinine 0.81, glucose 99 patient states that she feels that her foot pain is causing her back pain to worsen. Treatments PROGRAM/MUSIC DIRECTOR: Reports: Acetaminophen, NSAIDS Left Feet Pain Score (Numeric/FACES): 8 - Related Data Allergies Allergy/AdvReac Type Severity Reaction Status Date / Time No Known Allergies Allergy Verified 06/20/21 13:59 Home Meds: Home Meds Sertraline HCl [Zoloft] 100 mg PO DAILY 06/09/18 [History] clonazePAM [Clonazepam] 1 mg PO Q6HR PRN 06/09/18 [History] traZODone HCl [Trazodone HCl] 75 mg PO BEDTIME 06/26/18 [History] Albuterol Sulfate [Proair Hfa] 1 puff INH ASDIRECTED PRN 09/17/18 [History] Albuterol/Ipratropium [DuoNeb 3.0-0.5 MG/3 ML] 3 ml INH Q6H PRN 09/17/18 [History] Diclofenac Sodium [Voltaren] 75 mg PO BIDMEALS #16 tab.cr 06/20/21 [Rx] Pantoprazole Sodium [Protonix] 40 mg PO DAILY #14 tablet. 06/20/21 [Rx] predniSONE [Prednisone] 20 mg PO ASDIRECTED #15 tablet 06/20/21 [Rx] Past Medical History - Past Health History Medical/Surgical History: Denies Medical/Surgical History HEENT History: Reports: Other (See Below) Other HEENT History: current abcess tooth to right side of mouth Cardiovascular History: Reports: Cardiomyopathy Other Cardiovascular History: CHF Respiratory History: Reports: Asthma, Bronchitis, Recurrent Gastrointestinal History: Reports: GERD, Hemorrhoids Other Gastrointestinal History: blood in stool, epigastric pain Genitourinary History: Reports: None Other Genitourinary History: nipple discharge and soreness 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: Musculoskeletal History: Reports: Back Pain, Chronic Other Musculoskeletal History: left knee pain and leg pain Neurological History: Reports: Other (See Below) Other Neuro History: Chiari malformation Psychiatric History: Reports: Anxiety, Bipolar, Depression Endocrine/Metabolic History: Reports: Obesity/BMI 30+ Hematologic History: Reports: Blood Transfusion(s) Immunologic History: Reports: None Oncologic (Cancer) History: Reports: None Dermatologic History: Reports: None - Past Surgical History Head Surgeries/Procedures: Reports: Craniotomy HEENT Surgical History: Reports: None Cardiovascular Surgical History: Reports: None Respiratory Surgical History: Reports: None GI Surgical History: Reports: Cholecystectomy Female Surgical History: Reports: Section, Tubal Ligation Neurological Surgical History: Reports: Other (See Below) Other Neurological Surgeries/Procedures: brain surgery for Chiari malformation in 2014 Musculoskeletal Surgical History: Reports: Carpal Tunnel Oncologic Surgical History: Reports: None Dermatological Surgical History: Reports: None Social & Family History - Family History Family Medical History: No Pertinent Family History - Caffeine Use Caffeine Use: Reports: Coffee, Soda, Tea - Living Situation & Occupation Living situation: Reports: (), with Significant Other (Fiance, his mother and stepfather) Occupation: Unemployed Review of Systems - Review of Systems Review Of Systems: Comprehensive ROS is negative, except as noted in HPI. ED EXAM, GENERAL - Physical Exam Exam: See Below Exam Limited By: No Limitations General Appearance: Alert, WD/WN, No Apparent Distress Ears: Normal External Exam, Hearing Grossly Normal Nose: Normal Inspection Throat/Mouth: Normal Inspection, Normal Lips, Normal Voice, No Airway Compromise Head: Atraumatic Neck: Normal Inspection, Supple Respiratory/Chest: No Respiratory Distress, No Accessory Muscle Use Cardiovascular: Normal Peripheral Pulses, Regular Rate, Rhythm Peripheral Pulses: 2+: Dorsalis Pedis (L), Dorsalis Pedis (R) GI/Abdominal: No Distention (Female) Exam: Deferred Rectal (Female) Exam: Deferred Back Exam: Normal Inspection, Paraspinal Tenderness (Lumbar area), Vertebral Tenderness Extremities: Normal Inspection, No Pedal Edema, Normal Capillary Refill. No: Non-Tender (Left foot is tender with minimal palpation) Neurological: Alert, Oriented, Normal Cognition Psychiatric: Tearful Skin Exam: Warm, Dry, Intact, Normal Color, No Rash Lymphatic: No Adenopathy Course - Vital Signs Text/Narrative:: As stated above, patient presents with chronic back pain as well as left foot pain and has been in a walking boot for the past month and a half. She has been noncompliant with her follow-up with her primary care provider as well as she has not shown up for her MRIs that have been scheduled twice. She states she has not had time however she presents to the ER today with complaints of worsening pain. Upon assessment, the patient does complain of low back pain in the lumbar area. She complains of pain to the left foot. Pain is generalized. She states she does have swelling to the left foot however I am unable to appreciate this compared to the left. There is no redness or warmth appreciated either. As stated above she did have lab work completed on July 11, 2021 and her creatinine is stable. I will prescribe prednisone and Voltaren for this patient. I discussed that in order to resolve or find answers to any issues regarding her back and foot she needs to follow-up with her primary care provider as well as having the MRI completed. She was agreeable to this. Last Recorded V/S: Last Vital Signs Temp 97.1 F 06/20/21 14:04 Pulse 91 06/20/21 14:04 Resp 20 06/20/21 14:04 BP 130/60 06/20/21 14:04 Pulse Ox 100 06/20/21 14:04 Departure - Departure Time of Disposition: 14:36 Disposition: Home, Self-Care 01 Condition: Good Clinical Impression: Chronic pain in left foot Chronic back pain Qualifiers: Back pain location: low back pain Back pain laterality: bilateral Sciatica presence: unspecified whether sciatica present Qualified Code(s): M54.5 - Low back pain - Discharge Information Prescriptions: predniSONE [Prednisone] 20 mg PO ASDIRECTED #15 tablet Pantoprazole Sodium [Protonix] 40 mg PO DAILY #14 tablet. Diclofenac Sodium [Voltaren] 75 mg PO BIDMEALS #16 tab.cr Referrals: Delmi Willis PA-C [Primary Care Provider] - Forms: ED Department Discharge Additional Instructions: You were seen in the emergency department today with chronic back pain and worsening pain to your left foot. You absolutely need to follow-up with your primary care provider to get this sorted out. You need to have the MRI completed as well. This is imperative. The ER is not the place for treatment of chronic pain. I have sent prescription for prednisone to your pharmacy. This medication is a steroid. It should help to decrease some inflammation which is causing the discomfort. You will take 20 mg twice daily for 5 days and then 20 mg daily. I have also sent prescription to your pharmacy for a medication called Voltaren. This medication is an anti-inflammatory. It needs to be taken twice daily with food for 8 days. This combination of medications can make you prone to stomach ulcers so I have also sent a medication prescription to your pharmacy for Protonix. This medication helps to prevent stomach ulcers. You need to take it while taking the Voltaren and prednisone. They can be taken 1st thing in the morning. You should notice in 2-3 times a significant decrease in the pain in your back and left foot. Again, however, it is imperative that you follow-up with your primary care provider regarding these chronic issues. Sepsis Event Note (ED) - Focused Exam Vital Signs: Vital Signs Temp Pulse Resp BP Pulse Ox 06/20/21 14:04 97.1 F 91 20 130/60 100
[2021-06-20 14:07] VITALS: BP 130/60; PULSE 91
== END 2021-06-20 14:50 | disposition home or self-care (01) ==
LOC: JD.ED 13:28
DX: G89.29 Other chronic pain (principal); M54.5 Low back pain; M79.672 Pain in left foot; J45.909 Unspecified asthma, uncomplicated; I50.9 Heart failure, unspecified; E66.9 Obesity, unspecified; Z68.43 Body mass index [BMI] 50.0-59.9, adult; Z79.899 Other long term (current) drug therapy
CPT/HCPCS: 99283

== ENCOUNTER 2021-09-20 11:36 | Emergency (ER) | payer MEDICAID ==
[2021-09-20 12:00] VITALS: BP 127/90; PULSE 86
--- NOTE | 2021-09-20 12:53 | EDM.PDOC ---
ED HPI GENERAL MEDICAL PROBLEM - General Chief Complaint: Upper Extremity Injury/Pain Stated Complaint: SHOULDER INJURY Time Seen by Provider: 09/20/21 11:50 Source of Information: Reports: Patient, RN Notes Reviewed History Limitations: Reports: No Limitations - History of Present Illness INITIAL COMMENTS - FREE TEXT/NARRATIVE: Patient is a 40-year-old female presenting to the emergency department with complaints of a 2-week history of right shoulder pain. She reports back to me 2 weeks ago, she used her arm to help lift herself into a truck and shortly thereafter began experiencing pain. She was seen in the walk-in clinic at [place] the next day. Provided prescription for diclofenac and Flexeril which she states provided no relief. They did not complete x-rays. Pain is consistent. She has been using arm sling off and on but states sometimes that makes it worse. She has been using [id number] ibuprofen and Tylenol with little to no relief. She is tried ice and heat. She is unable to lift her arm above the level of her shoulder due to worsening pain. 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: Other Medication(s) Other Treatments TANBARK LABORER: tatiana at 8am right shoulder Pain Score (Numeric/FACES): 6 - Related Data Allergies Allergy/AdvReac Type Severity Reaction Status Date / Time No Known Allergies Allergy Verified 09/20/21 12:11 Home Meds: Home Meds clonazePAM [Clonazepam] 1 mg PO Q6HR PRN 06/09/18 [History] Albuterol Sulfate [Proair Hfa] 1 puff INH ASDIRECTED PRN 09/17/18 [History] Albuterol/Ipratropium [DuoNeb 3.0-0.5 MG/3 ML] 3 ml INH Q6H PRN 09/17/18 [History] Hydrocodone/Acetaminophen [Hydrocodone-Acetamin 5-325 mg] 1 each PO Q4H PRN #8 tablet 09/20/21 [Rx] predniSONE [Prednisone] 20 mg PO ASDIRECTED #15 tablet 09/20/21 [Rx] Past Medical History - Past Health History Medical/Surgical History: Denies Medical/Surgical History HEENT History: Reports: Other (See Below) Other HEENT History: current abcess tooth to right side of mouth Cardiovascular History: Reports: Cardiomyopathy Other Cardiovascular History: CHF Respiratory History: Reports: Asthma, Bronchitis, Recurrent Gastrointestinal History: Reports: GERD, Hemorrhoids Other Gastrointestinal History: blood in stool, epigastric pain Genitourinary History: Reports: None Other Genitourinary History: nipple discharge and soreness 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: Musculoskeletal History: Reports: Back Pain, Chronic, Other (See Below) Other Musculoskeletal History: right shoulder pain/injury Neurological History: Reports: Other (See Below) Other Neuro History: Chiari malformation Psychiatric History: Reports: Anxiety, Bipolar, Depression Endocrine/Metabolic History: Reports: Obesity/BMI 30+ Hematologic History: Reports: Blood Transfusion(s) Immunologic History: Reports: None Oncologic (Cancer) History: Reports: None Dermatologic History: Reports: None - Infectious Disease History Infectious Disease History: Reports: Chicken Pox - Past Surgical History Head Surgeries/Procedures: Reports: Craniotomy HEENT Surgical History: Reports: None Cardiovascular Surgical History: Reports: None Respiratory Surgical History: Reports: None GI Surgical History: Reports: Cholecystectomy Female Surgical History: Reports: Section, Tubal Ligation Neurological Surgical History: Reports: Other (See Below) Other Neurological Surgeries/Procedures: brain surgery for Chiari malformation in 2014 Musculoskeletal Surgical History: Reports: Carpal Tunnel Oncologic Surgical History: Reports: None Dermatological Surgical History: Reports: None Social & Family History - Family History Family Medical History: No Pertinent Family History - Tobacco Use Tobacco Use Status *Q: Current Every Day Tobacco User Years of Tobacco use: 27 Packs/Tins Daily: 0.5 - Caffeine Use Caffeine Use: Reports: Soda - Living Situation & Occupation Living situation: Reports: (), with Significant Other (Fiance, his mother and stepfather) Occupation: Unemployed Review of Systems - Review of Systems Review Of Systems: Comprehensive ROS is negative, except as noted in HPI. ED EXAM, GENERAL - Physical Exam Exam: See Below Exam Limited By: No Limitations General Appearance: Alert, WD/WN, No Apparent Distress Respiratory/Chest: No Respiratory Distress, Lungs Clear, Normal Breath Sounds, No Accessory Muscle Use, Chest Non-Tender Cardiovascular: Normal Peripheral Pulses, Regular Rate, Rhythm, No Edema, No Gallop, No JVD, No Murmur, No Rub Extremities: Other (Tenderness to palpation of the right posterior glenoid fossa. No warmth or swelling. Range of motion limited due to pain.) Neurological: Alert, Oriented, Normal Cognition, Normal Gait, No Motor/Sensory Deficits Psychiatric: Normal Affect, Normal Mood Skin Exam: Warm, Dry, Intact, Normal Color, No Rash Course - Vital Signs Last Recorded V/S: Last Vital Signs Temp 97.4 F 09/20/21 11:51 Pulse 86 09/20/21 11:51 Resp 16 09/20/21 11:51 BP 127/90 09/20/21 11:51 Pulse Ox 100 09/20/21 11:51 - Orders/Labs/Meds Orders: Active Orders 24 hr Category Date Time Status Shoulder Comp Rt [CR] Stat Exams 09/20/21 12:22 Taken - Re-Assessments/Exams Free Text/Narrative Re-Assessment/Exam: Patient is a 32-year-old female presenting to the emergency department complaints of 2-week history of right shoulder pain. States that she used her arm to help pull her self into a truck and has been having pain since that time. On exam, she has diffuse tenderness throughout the posterior glenoid fossa. Reports pain radiates throughout her posterior shoulder and into her lower neck. There is no obvious bruising or deformity. I ordered x-rays of the right shoulder. 09/20/21 12:56 X-ray of the right shoulder shows no obvious bony abnormalities. Patient will provide prescription for prednisone and [place]. I will send referral to orthopedist, Dr. Kurtz for follow-up. Discharge instructions as documented. Departure - Departure Time of Disposition: 12:58 Disposition: Home, Self-Care 01 Condition: Good Clinical Impression: Shoulder pain, right Qualifiers: Chronicity: acute Qualified Code(s): M25.511 - Pain in right shoulder - Discharge Information *PRESCRIPTION DRUG MONITORING PROGRAM REVIEWED*: Yes *COPY OF PRESCRIPTION DRUG MONITORING REPORT IN PATIENT [place]: No Prescriptions: Hydrocodone/Acetaminophen [Hydrocodone-Acetamin 5-325 mg] 1 each PO Q4H PRN #8 tablet PRN Reason: Pain predniSONE [Prednisone] 20 mg PO ASDIRECTED #15 tablet Instructions: Shoulder Pain Referrals: Delmi Willis PA-C [Primary Care Provider] - Tiago Kurtz MD [Physician] - Forms: ED Department Discharge Additional Instructions: Take the prednisone as prescribed. Use [id number] Tylenol and ibuprofen as needed for discomfort. For pain not relieved by this, a short prescription for hydrocodone with Tylenol has been provided. Use only as prescribed. Do not work or drive for 12 hours after taking this as it can be sedating. Referral has been sent to orthopedist, Dr. Kurtz. Call Friday morning to set up follow-up appointment with him. Return to ER as needed. Sepsis Event Note (ED) - Evaluation Sepsis Screening Result: No Definite Risk - Focused Exam Vital Signs: Vital Signs Temp Pulse Resp BP Pulse Ox 09/20/21 11:51 97.4 F 86 16 127/90 100 - My Orders Last 24 Hours: My Active Orders 09/20/21 12:22 Shoulder Comp Rt [CR] Stat - Assessment/Plan Last 24 Hours: My Active Orders 09/20/21 12:22 Shoulder Comp Rt [CR] Stat
--- NOTE | 2021-09-21 07:04 | CR ---
Right shoulder: 3 views of the right shoulder were obtained. Comparison: No prior right shoulder study is available. Acromioclavicular joint shows no abnormal inferior spurring. Glenohumeral joint is normal. No fracture or dislocation is seen. No abnormal soft tissue calcifications are seen. Impression: 1. Nothing acute is seen on 3-view right shoulder study. Diagnostic code #1
== END 2021-09-20 13:06 | disposition home or self-care (01) ==
LOC: JD.ED 11:36
DX: M25.511 Pain in right shoulder (principal); E66.9 Obesity, unspecified; Z68.30 Body mass index [BMI] 30.0-30.9, adult; Z72.0 Tobacco use
CPT/HCPCS: 73030-26-RT; 73030-RT; 99283-25

== ENCOUNTER 2022-07-12 09:33 | Emergency (ER) | payer MEDICAID ==
[2022-07-12 09:53] VITALS: BP 121/53; PULSE 106
== END 2022-07-12 13:34 | disposition home or self-care (01) ==
LOC: JD.ED 09:33
DX: M54.42 Lumbago with sciatica, left side (principal); I50.9 Heart failure, unspecified; E66.9 Obesity, unspecified; Z68.43 Body mass index [BMI] 50.0-59.9, adult
CPT/HCPCS: 72100; 72100-26; 73502-26-LT; 73502-LT; 99283

== ENCOUNTER 2024-09-19 16:33 | Emergency (ER) | payer MEDICAID ==
[2024-09-19] MEDS: Cyclobenzaprine 10 MG Tab PO ONE (17:36)
[2024-09-19] MEDS: HYDROmorphone 1 MG/ML Syringe IM ONE (17:50)
[2024-09-19] MEDS: Ketorolac 60 MG/2 ML SDV IM ONE (17:52)
[2024-09-19 18:16] LABS: APPEARANCE,URINE CLEAR (Clear); BILIRUBIN,URINE NEGATIVE (Negative); COLOR,URINE LIGHT YELLOW (Yellow); GLUCOSE,URINE NEGATIVE (Negative); KETONES,URINE NEGATIVE (Negative); LEUKOCYTE ESTERASE,URINE NEGATIVE (Negative); NITRITE,URINE NEGATIVE (Negative); OCCULT BLOOD,URINE NEGATIVE (Negative); PROTEIN,URINE NEGATIVE (Negative); UROBILINOGEN,URINE 0.2 (0.2-1.0)
[2024-09-19 19:23] VITALS: BP 134/62; PULSE 62
== END 2024-09-19 19:23 | disposition home or self-care (01) ==
LOC: JD.ED 16:33
DX: M54.41 Lumbago with sciatica, right side (principal); I50.9 Heart failure, unspecified; J44.89 Other specified chronic obstructive pulmonary disease; E66.9 Obesity, unspecified; Z68.42 Body mass index [BMI] 45.0-49.9, adult; Z90.49 Acquired absence of other specified parts of digestive tract; Z79.899 Other long term (current) drug therapy
CPT/HCPCS: 72100; 81003; 96372; 99283; A9270; J1171; J1885

== ENCOUNTER 2024-12-25 22:11 | Emergency (ER) | payer MEDICAID ==
[2024-12-25] MEDS: Pregabalin 75 MG Cap PO ONE (22:53)
[2024-12-25] MEDS: Ketorolac 30 MG/ML SDV IM ONE (22:54)
[2024-12-25 23:00] VITALS: BP 93/59; PULSE 76
== END 2024-12-25 23:30 | disposition home or self-care (01) ==
LOC: JD.ED 22:11
DX: M54.12 Radiculopathy, cervical region (principal); E66.9 Obesity, unspecified; Z90.49 Acquired absence of other specified parts of digestive tract; Z68.42 Body mass index [BMI] 45.0-49.9, adult
CPT/HCPCS: 96372; 99283; A9270; J1885

== ENCOUNTER → 2025-08-23 | Day surgery (SDC) | payer MEDICAID ==
[~2025-08-23] MED LIST changes: -Albuterol 0.083% 2.5 MG/3 ML Neb Soln NEB ONE; +Dexamethasone 4 MG/ML 5 ML MDV ONE; +EPINEPHrine 1 MG/ML SDV ONE; +Glycopyrrolate 0.2 MG/ML 2 ML SDV ONE; +Ketamine HCL/NACL, ISO-OSM 50 MG/5 ML Syringe ONE; +Ketorolac 30 MG/ML SDV ONE; -Lactated Ringers 1,000 ML IV SCH; -Lidocaine 1%/Sod Bicarbonate in NS 8.4% 1 ML Syringe IDERM PRN; +Midazolam 1 MG/ML 2 ML SDV ONE; +Ondansetron 4 MG/2 ML SDV IVPUSH PRN; +Sodium Chloride 0.9% 10 ML Syringe FLUSH SCH; +dexmedeTOMIDine HCl 200 MCG/2 ML SDV ONE; +fentaNYL 100 MCG/2 ML SDV IVPUSH PRN; +fentaNYL 250 MCG/5 ML SDV ONE; +propofoL 1,000 MG/100 ML 100 ML ONE
[2025-08-23 08:31] LABS: APPEARANCE,URINE CLEAR (Clear); GLUCOSE,URINE NEGATIVE (Negative); OCCULT BLOOD,URINE NEGATIVE (Negative)
[2025-08-23] MEDS: Lactated Ringers 1,000 ML IV SCH (08:56)
[2025-08-23 09:12] VITALS: BP 109/57; PULSE 83
[2025-08-23 09:50] LABS: BUPRENORPHINE SCREEN,URINE NEGATIVE (CUTOFF=10); METHADONE SCREEN, URINE NEGATIVE (CUTOFF=200); METHAMPHETAMINES SCREEN, URINE PRESUMPTIVE POSITIVE (CUTOFF=500); OXYCODONE SCREEN,URINE NEGATIVE (CUT0FF=100); THC SCREEN,URINE 20 NG/ML PRESUMPTIVE POSITIVE (CUTOFF=50)
[2025-08-23 09:55] LABS: AMPHETAMINES SCREEN, URINE PRESUMPTIVE POSITIVE (CUTOFF=500)
== END ==
LOC: JD.SDS 08:06
PROVIDERS: ATTEND Obstetrics & Gynecology
DX: Z53.8 Procedure and treatment not carried out for other reasons (principal)
CPT/HCPCS: 36415; 80306; 81003; 81025; 86850; 86900; 86901; 96360; J7120; J7620; A9270-GY; J0169; J0665; J0690; J1100; J1596; J1885; J2003; J2250; J2704; J3010; J3490